=== PATIENT | male | born 1955 | race Caucasian/White ===

== ENCOUNTER → 2024-03-03 | Outpatient (BNVA) | payer MEDICARE, BC, SELFPAY | END | disposition home or self-care (01) | PROVIDERS: PCP Family Medicine; Referring Provider Family Medicine; Visit Provider Urology | DX: N42.32 Atypical small acinar proliferation of prostate (principal); N40.1 Benign prostatic hyperplasia with lower urinary tract symptoms; N13.8 Other obstructive and reflux uropathy; E78.00 Pure hypercholesterolemia, unspecified; E11.9 Type 2 diabetes mellitus without complications | CPT/HCPCS: 55700; 76872; 76942; 81003; 96372; A4649; J3260; J3490; A9270 ==

== ENCOUNTER → 2024-03-17 | Outpatient (BNVA) | payer MEDICARE, BC, SELFPAY | END | disposition home or self-care (01) | PROVIDERS: PCP Family Medicine; Referring Provider Family Medicine; Visit Provider Urology | DX: N40.0 Benign prostatic hyperplasia without lower urinary tract symptoms (principal); Z98.890 Other specified postprocedural states; R73.03 Prediabetes; E66.9 Obesity, unspecified; Z68.25 Body mass index [BMI] 25.0-25.9, adult | CPT/HCPCS: 81003; 99212; G0463 ==

== ENCOUNTER → 2024-07-15 | Outpatient (CLI) | payer MEDICARE, BC, SELFPAY ==
[2024-07-15 09:11] LABS: Collection Type, Urine Clean Catch
[2024-07-15 09:28] LABS: Basophils # (Auto) 0.1 Thou/mm3 (0.0-0.2); Basophils % (Auto) 2 % (0-2.5); Eosinophils # (Auto) 0.2 Thou/mm3 (0.0-0.5); Eosinophils % (Auto) 4 % (0-10); Hemoglobin 16.1 g/dL (13.5-16.0); Immature Granulocytes % (Auto) 0 % (0-0); Immature Granulocytes Auto 0.01 Thou/mm3 (0.00-0.00); Lymphocytes # (Auto) 1.2 Thou/mm3 (1.0-4.8); Lymphocytes % (Auto) 29 % (10-50); Mean Corpuscular HGB Conc 35.8 g/dl (31.0-37.0); Mean Corpuscular Hemoglobin 33.8 pg (25.0-35.0); Mean Corpuscular Volume 95 fL (80-100); Monocytes # (Auto) 0.3 Thou/mm3 (0.0-0.8); Monocytes % (Auto) 8 % (0-12); Neutrophils # (Auto) 2.3 Thou/mm3 (1.8-7.7); Neutrophils % (Auto) 57 % (37-80); Nucleated Red Blood Cell % 0 /100 WBC (0); Platelet Count 210 Thou/mm3 (140-440); RDW Standard Deviation 43.6 fL (35.1-43.9); Red Blood Count 4.76 Miln/mm3 (4.50-5.90)
[2024-07-15 09:46] LABS: Glucose Estimated Average 151 mg/dL (80-131); Hemoglobin A1C 6.9 % Hgb (4.8-6.0)
[2024-07-15 09:53] LABS: Creatinine MALB Rnd Ur 114 mg/dL (30-125); Microalbumin Creat Ratio 4 mg/gCrea (<30); Microalbumin, Random Urine 5 mg/L (0-300)
[2024-07-15 10:00] LABS: Bilirubin,Urine Negative (Negative); Blood,Urine Negative (Negative); Clarity,Urine Clear (Clear/Hazy); Color,Urine Yellow (Lt Yel-Yel); Culture Indicated,Urine Not Indicated; Glucose, Urine Negative (Negative); Ketones,Urine Negative (Negative); Leukocyte Esterase,Urine Negative (Negative); Nitrite,Urine Negative (Negative); Protein,Urine Negative (Neg - Trace); RBC,Urine 1 /hpf (0-3); Specific Gravity,Urine 1.018 (1.001-1.035); Squamous Epithelial Cell,Urine < 1 /hpf (0-5); Urobilinogen,Urine Negative mg/dL (0.0-1.0); WBC,Urine 1 /hpf (0-5)
[2024-07-15 10:11] LABS: Alanine Aminotransferase 18 U/L (10-49); Albumin, Serum 4.4 gm/dL (3.4-4.8); Albumin/Globulin Ratio 1.7 (1.2-2.2); Alkaline Phosphatase 85 U/L (46-116); Anion Gap 7 (7-16); Aspartate Amino Transferase 29 U/L (0-34); BUN/Creatinine Ratio 16 Ratio (12-20); Bilirubin,Total 0.8 mg/dL (0.3-1.2); Blood Urea Nitrogen 14 mg/dL (9-23); Calcium 9.6 mg/dL (8.3-10.6); Calcium (Corrected) 9.6 mg/dL (8.5-10.1); Carbon Dioxide 25.7 mMol/L (20.0-31.0); Chloride 106 mMol/L (98-107); Cholesterol 223 mg/dL (132-200); Creatinine (Component) 0.9 mg/dL (0.6-1.3); Globulin 2.6 gm/dL (2.3-3.5); Glucose 144 mg/dL (74-106); HDL Cholesterol 45 mg/dL (40-60); LDL Cholesterol,Calculated 147 mg/dL (0-130); Osmolality,Calculated 281 (275-295); Potassium 4.6 mMol/L (3.4-5.1); Sodium 139 mMol/L (136-145); Thyroid Stimulating Hormone 2.17 uIU/mL (0.55-4.78); Triglycerides 153 mg/dL (30-150); eGFR > 60 See Note
[2024-07-15 10:32] LABS: Prostate Specific Antigen 4.47 ng/mL (0-4.00)
== END | disposition home or self-care (01) ==
PROVIDERS: PCP Family Medicine; Referring Provider Registered Nurse; Visit Provider Registered Nurse
DX: Z00.00 Encounter for general adult medical examination without abnormal findings (principal); E11.65 Type 2 diabetes mellitus with hyperglycemia; E78.2 Mixed hyperlipidemia; N40.1 Benign prostatic hyperplasia with lower urinary tract symptoms; R97.20 Elevated prostate specific antigen [PSA]
CPT/HCPCS: 36415; 80053; 80061; 81001; 82043; 82306; 82570; 83036; 84153; 84443; 85025

== ENCOUNTER → 2024-07-28 | Outpatient (CLI) | payer MEDICARE, BC, SELFPAY ==
--- NOTE | 2024-07-28 10:51 | XR_ITS ---
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 No opaque foreign body Plantar posterior bony calcaneal spurs IMPRESSION: No fracture No opaque foreign body
== END | disposition home or self-care (01) ==
PROVIDERS: PCP Registered Nurse; Referring Provider Registered Nurse; Visit Provider Registered Nurse
DX: M79.671 Pain in right foot (principal)
CPT/HCPCS: 73630

== ENCOUNTER 2024-09-01 19:27 | Inpatient (IN) | payer MEDICARE, BC, SELFPAY ==
[2024-09-01] VITALS (53 sets, daily range): BP systolic 119–218; BP diastolic 75–127; PULSE 63–106; RESP 14–96; TEMP 36.8; O2SAT 94–98; BMI 26.7
--- NOTE | 2024-09-01 19:31 | EKG_ITS ---
[facility] Test Date: 2024-09-01 Pat Name: KALIN JOHNSTON Department: Room: - Gender: Male [employer]: : 1955 Requested By: Jc Cardona Order Number: [id number] Reading MD: Jc Cardona Measurements Intervals [place] Rate: 77 P: 30 [place]: 175 QRS: 54 QRSD: 115 T: 33 QT: 372 QTc: 421 Interpretive Statements SINUS RHYTHM MODERATE INTRAVENTRICULAR CONDUCTION DELAY [110+ ms QRS DURATION] Compared to ECG 11/16/2021 17:02:34 Intraventricular conduction delay now present Sinus bradycardia no longer present T-wave abnormality no longer present /store/S0/[id number]/[id number].pdf
--- NOTE | 2024-09-01 19:31 | XR_ITS ---
Examination: CTA carotids with intravenous contrast CTA brain, head with intravenous contrast. 2-D sagittal, coronal reconstructions. 3-D reconstructions. Exam date and time: September 01, 2024 1946 hrs. Indications: Stroke alert, slurred speech, numbness onset focal neurologic deficit today CTDI: vol (mGy) 39.9 DLP: (mGycm) 504 Technique: Multiple CTA axial brain, head carotid images post intravenous contrast injection 100 cc, Isovue-370. 2-D sagittal, coronal reconstructions. 3-D reconstructions, 3-D post processing including vascular maximum intensity projection images. Low dose protocols were performed. One or more of the following dose reduction techniques were used; automated exposure control, adjustment of the mA and/or KV according to patient size, use of iterative reconstruction technique. Findings: No significant common carotid carotid bifurcation or internal carotid artery stenoses Dominant left vertebral artery, no significant vertebral artery stenoses in the neck Intracranial vertebral arteries basilar artery fill Short segment lack of filling proximal left posterior cerebral artery which may relate to collateral flow No cerebral occlusions or thrombus involving M1 segments middle cerebral arteries middle cerebral trifurcation artery branches or anterior cerebral arteries Impression: No significant neck arterial stenoses Middle cerebral anterior cerebral arteries demonstrate no large vessel occlusions Lack of filling short segment proximal P1 segment left posterior cerebral artery which may relate to collateral flow, clinical correlation advised Recommend brain MRI MRA stroke protocol, follow-up
--- NOTE | 2024-09-01 19:31 | XR_ITS ---
Examination: CT brain head without contrast. 2-D sagittal coronal reconstructions Date and time of exam:September 01, 2024, 1934 hrs. Indications: Stroke alert, onset focal neurologic deficit today service speech numbness involving the tongue CTDI: vol (mGy):51.2 DLP: (mGycm): 1079 Technique: Multiple CT axial sections of the brain have been obtained, 5 mm slice thickness. Contrast has not been administered. 2-D sagittal, coronal reconstructions have been obtained Low dose protocols were performed. One or more of the following dose reduction techniques were used; automated exposure control, adjustment of the mA and/or KV according to patient size, use of iterative reconstruction technique. Findings: No significant ventricular enlargement. Intra-axial or extra-axial hemorrhage density is not seen. No mass effect or midline shift Basal cisterns are not remarkable. Fourth ventricle is midline. Cranial vault intact. Impression: Negative for acute hemorrhage, mass effect or midline shift
--- NOTE | 2024-09-01 19:33 | PD.EDADULT ---
ED General RME/HPI General Chief complaint: Neuro Symptoms/Deficit Stated complaint: CAN'T TALK Time Seen by Provider: 09/01/24 19:31 Arrival date/time: 09/01/24 19:27 CC: Garbled speech with significant difficulty of word pronunciation. Patient nods that he knows what he wants to say but he is unable to have his mouth perform the words. HPI abrupt onset at 1900. No prior history of similar events. Patient does not smoke drink. Patient admits he may have hypertension but does not take any medicines today has not been mentioned by his primary care doctor. Patient denies chest pain shortness of breath or difficulty breathing he is awake alert oriented Related Data Home Medications ?Medication ?Instructions ?Recorded ?Confirmed No Known Home Medications 02/06/24 03/17/24 Allergies Allergy/AdvReac Type Severity Reaction Status Date / Time No Known Allergies Allergy Verified 09/01/24 19:33 Review of Systems Review of Systems Narrative Review of Systems: GEN: No fever, no chills, no weight loss EYES: No discharge, no visual changes, no pain HEENT: No ear pain, no congestion, no sore throat PULM: No shortness of breath, no cough, no congestion CV: No chest pain, no dyspnea on exertion, no palpitations GI: No nausea, no vomiting, no diarrhea, no pain, no constipation : No frequency, no urgency, no dysuria MUSC/SKEL: No joint pain, no back pain SKIN: No rash PSYCH: No hallucinations, no depression HEME/LYMPH: No easy bleeding or bruising tendencies NEURO: No weakness, no headache, + garbled speech Past Medical History Past Medical History NEUROLOGIC: Negative Neurological Disorders or Seizures CARDIAC: Positive Cardiac Disorders and Hypercholesterolemia (No meds); Negative Congestive Heart Failure RESPIRATORY: Negative Chronic Obstructive Pulmonary Disease (COPD) GASTROINTESTINAL: Positive Gastrointestinal Disorders; Negative Hepatitis GENITOURINARY: Negative Genitourinary Disorders or Renal Disease REPRODUCTIVE: Negative Fibroids MUSCULOSKELETAL: Positive Musculoskeletal Disorders and Fractures (right wrist repair) ENDOCRINE: Positive Endocrine Disorders and Diabetes Mellitus Type 2 (po med); Negative Diabetes Mellitus Type 1 HEMATOLOGIC: Negative Blood Disorders, Anemia, Leukemia, Hemophilia, Thalassemia, Sickle Cell Disease or Clotting Problems OTHER HISTORY: Negative Hospitalization, Autoimmune Disease, Down Syndrome, Developmental Delay, Shingles, Falls, Blood Transfusions, Blood Transfusion Reaction, Anesthesia Reactions, Organ Transplant, Chemotherapy, Radiation Therapy, Hyperbaric Therapy, MRSA, VRSA, Vancomycin-Resistant Enterococci, Human Immunodeficiency Virus (HIV), Chicken Pox, Measles, Mumps, Rubella (Congolese Measles), Pertussis, Clostridium Difficile or Cancer Family History FAMILY HISTORY: Negative Family Psychiatric Problems, Family Respiratory Disorders, Family Cardiac Disorders, Family Gastrointestinal Problems, Family Cancer, Family Surgery or Family Anesthesia Reaction Surgical History SURGICAL: Negative Organ Transplant Social History SMOKING STATUS: Never smoker ED Exam Narrative Physical exam: [General: Not in any acute distress Head normocephalic HEENT: Eyes pupils are PERRLA EOMs intact nose no rhinorrhea mouth pink moist membranes uvula is midline swallow symmetrical phonation is normal. All the subsystems HEENT are within acceptable limits Neck is supple nontender no JVD Chest equal chest rise nontender to palpation Respiratory: Clear to auscultation no wheezes crackles or rubs CV: Rate rhythm is regular no murmurs rubs or clicks Abdomen is flat, soft nontender no masses positive bowel sounds all 4 quadrants Back: No CVA tenderness no spinous process tenderness from cervical spine thoracic and lumbar spine Skin: Intact no petechiae rash induration ulceration or crepitus Extremities: Moving all extremity against resistance cap refill less than 2 seconds neurosensory intact Neuro: Awake alert oriented x3 Glascow coma 15 no focal deficits, negative proprioception negative pronator drift. Following all commands without complication. Cranial nerves II through XII are grossly intact. The patient still has persistent difficulty in pronunciation words. Course Course Course Narrative: At 2045, patient's infusion of [facility] is complete, the patient has mild improvement in his speech where he is able to sit pronounce his name clearly. 1-2 words come out clearly however more complex phrases continue to be garbled. At 2129, the patient's case is presented to laboratory results imaging and presentation discussed with , who agrees accept the patient for ICU admission. Patient is in agreement with this plan. Quality Measures none Orders Category Date Time Status Bedside Blood Glucose NOW Care 09/01/24 19:31 Active Field Party Manager NOW Care 09/01/24 19:31 Active Continuous Pulse Oximetry NOW Care 09/01/24 19:31 Completed EKG (ED ONLY) *Do not use* NOW Care 09/01/24 19:31 Active In and Out Catheter NEEDED Care 09/01/24 19:31 Active Insert IV NOW Care 09/01/24 19:31 Active NIH Stroke Scale Q4HX8,QSHIFT Care 09/01/24 20:27 Active NIH Stroke Scale now Care 09/01/24 19:31 Completed NPO NOW Care 09/01/24 19:31 Active Neuro Check Q15M Care 09/01/24 20:27 Active Nurse Swallow Screen x1 Care 09/01/24 19:31 Active Vital Signs Q15M Care 09/01/24 20:27 Active Consult to Neurology / Tele-Neurology Routine Cons 09/01/24 19:[address] angio stroke protocol Stat Exams 09/01/24 19:[address] stroke protocol Stat Exams 09/01/24 19:31 Completed EKG (ED Only) Stat Exams 09/01/24 19:31 Ordered CBC Stat Lab 09/01/24 19:45 Completed Comprehensive Metabolic Panel Stat Lab 09/01/24 20:05 Completed Drug Screen,Urine Stat Lab 09/01/24 19:31 Ordered Magnesium Stat Lab 09/01/24 20:05 Completed Partial Thromboplastin Time Stat Lab 09/01/24 20:05 Completed Prothrombin Time with INR Stat Lab 09/01/24 20:05 Completed Troponin I Stat Lab 09/01/24 20:05 Completed Urinalysis Stat Lab 09/01/24 19:31 Ordered Urine Culture Stat Lab 09/01/24 19:31 Ordered Labetalol IV [Trandate IV] Med 09/01/24 20:12 Active 10 mg IVP PRNMRX1 PRN Labetalol IV [Trandate IV] Med 09/01/24 20:12 Active 10 mg IVP PRNMRX1 PRN Nicardipine/Ns 20Mg Ivpb [Cardene Ivpb] Med 09/01/24 20:00 Discontinued 20 mg in 200 ml IV 5 mg/hr Nicardipine/Ns 20Mg Ivpb [Cardene Ivpb] Med 09/01/24 20:12 Active 20 mg in 200 ml IV 5 mg/hr Ondansetron Inj [Zofran Inj] Med 09/01/24 19:31 Active 4 mg IV Q4HR PRN Tenecteplase Inj [TNKase Inj] Med 09/01/24 20:12 Discontinued 21 mg IV X1 ONE Oxygen Delivery NOW RT 09/01/24 19:31 Active Vital Signs Vital signs: Vital Signs Pulse Rate 65 09/01/24 20:06 Respiratory Rate 17 09/01/24 20:06 Pulse Oximetry (%) 98 09/01/24 20:06 Discharge Plan Plan Patient Disposition: Admit Acute Care w/in Hospital Patient condition on transfer: Stable Prescriptions/Referrals Prescriptions/Med Rec: No Action No Known Home Medications Referrals: No Primary/Family,Physician [Primary Care Provider] - In 1 week Problem List Clinical Impression: Cerebrovascular accident Patient/Caregiver Discharge Instructions Print Language: [place] Stand Alone Forms: [place] Award Info., Patient Portal Info Letter PA/TALENT RECRUITER Supervising Physician PA/TALENT RECRUITER Supervising Physician: Jc Booth ENP MDM Patient Acuity High Acuity (complete MDM) Clinical Information Provided by: patient Medical Records reviewed [facility] Chronic Illness/Social Conditions which may negatively complicate care or outcome(s)-explain: None or not applicable Labs Lab(s) Interpretation(s): CBC shows no leukocytosis no anemia thrombocytopenia INR is within acceptable limits CMP shows no acute electrolyte imbalances glucose at 173 no transaminitis or T. bili elevation Magnesium at 2.[address] head is interpreted by radiology as negative for any acute finding requires emergent or immediate intervention. Medication Administration(s) Medication Administration History Nicardipine/Sodium Chloride (Cardene Ivpb) 20 mg in 200 mls @ 50 mls/hr IV .Q4H PRN; Protocol PRN Reason: Per Nicardipine Stroke Protocol Stop: 10/01/24 20:11 Last Titration: 09/01/24 21:05 Dose: 3 mg/hr, 30 mls/hr Documented By: Titration: 09/01/24 21:00 Dose: 3 mg/hr, 30 mls/hr Documented By: Titration: 09/01/24 20:55 Dose: 3 mg/hr, 30 mls/hr Documented By: Titration: 09/01/24 20:50 Dose: 3 mg/hr, 30 mls/hr Documented By: Titration: 09/01/24 20:45 Dose: 3 mg/hr, 30 mls/hr Documented By: Titration: 09/01/24 20:40 Dose: 3 mg/hr, 30 mls/hr Documented By: Titration: 09/01/24 20:35 Dose: 3 mg/hr, 30 mls/hr Documented By: Titration: 09/01/24 20:30 Dose: 3 mg/hr, 30 mls/hr Documented By: Titration: 09/01/24 20:25 Dose: 3 mg/hr, 30 mls/hr Documented By: Titration: 09/01/24 20:20 Dose: 3 mg/hr, 30 mls/hr Documented By: Titration: 09/01/24 20:15 Dose: 7.5 mg/hr, 75 mls/hr Documented By: Admin: 09/01/24 20:10 Dose: 5 mg/hr, 50 mls/hr Documented By: EF Labetalol HCl (Labetalol Inj 5 Mg/Ml Vial 20 Ml) 10 mg IVP PRNMRX1 PRN PRN Reason: SBP > 185 mmHg and/or DBP > 110 Labetalol HCl (Labetalol Inj 5 Mg/Ml Vial 20 Ml) 10 mg IVP PRNMRX1 PRN PRN Reason: SBP > 180 mmHg or DBP > 105 Ondansetron HCl (Ondansetron Inj 2 Mg/Ml Inj 2 Ml) 4 mg IV Q4HR PRN PRN Reason: NAUSEA OR VOMITING Stop: 10/01/24 19:30 Discontinued Medications Nicardipine/Sodium Chloride (Cardene Ivpb) 20 mg in 200 mls @ 50 mls/hr IV .Q4H PRN; Protocol PRN Reason: PER PROTOCOL Stop: 10/01/24 19:59 Last Titration: 09/01/24 20:10 Dose: 0 mg/hr, 0 mls/hr Documented By: Admin: 09/01/24 20:07 Dose: 5 mg/hr, 50 mls/hr Documented By: EF Tenecteplase (Tenecteplase Inj 50 Mg Vial) 21 mg IV X1 ONE Stop: 09/01/24 20:13 Last Admin: 09/01/24 20:31 Dose: 21 mg Documented By: EF Co-signed By: RC
[2024-09-01 19:53] LABS: Basophils # (Auto) 0.1 Thou/mm3 (0.0-0.2); Basophils % (Auto) 2 % (0-2.5); Eosinophils # (Auto) 0.3 Thou/mm3 (0.0-0.5); Eosinophils % (Auto) 5 % (0-10); Hematocrit 44.3 % (41.0-53.0); Immature Granulocytes % (Auto) 0 % (0-0); Immature Granulocytes Auto 0.01 Thou/mm3 (0.00-0.00); Lymphocytes % (Auto) 37 % (10-50); Mean Corpuscular HGB Conc 36.1 g/dl (31.0-37.0); Mean Corpuscular Hemoglobin 33.8 pg (25.0-35.0); Mean Corpuscular Volume 94 fL (80-100); Monocytes # (Auto) 0.5 Thou/mm3 (0.0-0.8); Monocytes % (Auto) 8 % (0-12); Neutrophils # (Auto) 2.6 Thou/mm3 (1.8-7.7); Neutrophils % (Auto) 48 % (37-80); Nucleated Red Blood Cell % 0 /100 WBC (0); Platelet Count 202 Thou/mm3 (140-440); RDW Standard Deviation 44.1 fL (35.1-43.9); Red Blood Count 4.73 Miln/mm3 (4.50-5.90); White Blood Count 5.4 Thou/mm3 (3.8-10.6)
[2024-09-01] MEDS: NICARDIPINE/NS 20MG IVPB 20 MG/200 ML BAG 50 MG IV ×2 (20:07→20:10)
[2024-09-01 20:31] LABS: Partial Thromboplastin Time 27.1 Seconds (22.0-36.0); Prothrombin Time 10.9 Seconds (9.0-12.2)
[2024-09-01] MEDS: TENECTEPLASE INJ 50 MG VIAL 21 MG IV (20:31)
[2024-09-01 20:44] LABS: Alanine Aminotransferase 22 U/L (10-49); Albumin, Serum 4.7 gm/dL (3.4-4.8); Albumin/Globulin Ratio 1.6 (1.2-2.2); Alkaline Phosphatase 94 U/L (46-116); Anion Gap 6 (7-16); Aspartate Amino Transferase 26 U/L (0-34); BUN/Creatinine Ratio 11 Ratio (12-20); Bilirubin,Total 0.7 mg/dL (0.3-1.2); Blood Urea Nitrogen 12 mg/dL (9-23); Calcium 9.3 mg/dL (8.3-10.6); Calcium (Corrected) 9.3 mg/dL (8.5-10.1); Carbon Dioxide 28.8 mMol/L (20.0-31.0); Chloride 105 mMol/L (98-107); Creatinine (Component) 1.1 mg/dL (0.6-1.3); Estimated Creatinine Clearance 62.5 mL/min (>60); Globulin 2.9 gm/dL (2.3-3.5); Glucose 173 mg/dL (74-106); Magnesium 2.2 mg/dL (1.6-2.6); Osmolality,Calculated 283 (275-295); Potassium 3.8 mMol/L (3.4-5.1); Sodium 140 mMol/L (136-145); Total Protein 7.6 gm/dL (5.7-8.2); Troponin I < 0.020 ng/mL (0.0-0.045); eGFR > 60 See Note
--- NOTE | 2024-09-01 21:16 | ESCONSULT_ITS ---
Tele Neuro Consultation Consultation Date 09/01/24 Most Recent Vital Signs Last Vital Signs Pulse 77 09/01/24 21:11 Resp 17 09/01/24 21:11 BP 169/76 H 09/01/24 21:11 Pulse Ox 96 09/01/24 21:11 O2 Del Method Room Air 09/01/24 21:03 Laboratory-Coagulation Panel PT 10.9 Seconds (9.0-12.2) 09/01/24 20:05 INR 1.0 (0.9-1.3) 09/01/24 20:05 APTT 27.1 Seconds (22.0-36.0) 09/01/24 20:05 Consultation Narrative [facility] Patient Name:???Martín Cortes Date of :???1955 Identification Number:??? Date of Service:???09/01/2024 19:30:57 Diagnosis:?I63.89 - Cerebrovascular accident (CVA) due to other mechanism ([facility]) Impression: ?This is a 69 year old right handed man with history of diabetes here with difficulty speaking stroke alert called for the same. Given that deficits are disabling (he was barely able to speak at all at the time thrombolytics were given) and, given lack of clear contraindications he was given IV thrombolytics. Time was spent controlling the blood pressure prior to giving IV thrombolytics. Radiology noted lack of filling within the left P1 segment- but- there was no clear cut off the vessel was filling will proximal to, and distal to the ? area where filling was not noted. Radiology did not believe that this was an a cute occlusion. Our recommendations are outlined below. Recommendations: IV Tenecteplase recommended. I confirmed the following. (Patient name, , MRN, Blood Pressure, dose of Thrombolytic and waste, weight completed by stretcher/scale not stated weight, have ED staff inform ED MD of thrombolytic decision) Thrombolytic bolus given Without Complication. IV Tenecteplase Total Dose ? 20.6 mg (Dose Rounding Per Facility Protocol) Routine post Thrombolytic monitoring including neuro checks and blood pressure control during/after treatment Monitor blood pressure Check blood pressure and neuro assessment every 15 min for 2 h, then every 30 min for 6 h, and finally every hour for 16 h. Manage Blood Pressure per post Thrombolytic protocol. ? Follow designated hospital protocol for admission and post thrombolytic care ? CT brain 24 hours post Thrombolytic ? NPO until swallowing screen performed and passed ? No antiplatelet agents or anticoagulants (including heparin for DVT prophylaxis) in first 24 hours ? No Means catheter, nasogastric tube, arterial catheter or central venous catheter for 24 hr, unless absolutely necessary ? Telemetry ? Bedside swallow evaluation ? HOB less than 30 degrees ? Euglycemia ? Avoid hyperthermia, PRN acetaminophen ? DVT prophylaxis ? Inpatient Neurology Consultation ? Stroke evaluation as per inpatient neurology recommendations Discussed with ED physician Advanced Imaging: CTA Head and Neck Completed. LVO:No Patient in not a candidate for CHELSEA Metrics: Last Known Well: 09/01/2024 19:00:00 Dispatch Time: 09/01/2024 19:30:57 Arrival Time: 09/01/2024 19:27:00 Initial Response Time: 09/01/2024 19:36:28Symptoms: difficulty speaking. Initial patient interaction: 09/01/2024 19:40:00 NIHSS Assessment Completed: 09/01/2024 19:40:00Patient is a candidate for Thrombolytic. Thrombolytic Medical Decision: 09/01/2024 20:20:00 Needle Time: 09/01/2024 20:33:00Weight Noted by Staff: 82.[address] head showed no acute hemorrhage or acute core infarct. Primary Provider Notified of Diagnostic Impression and Management Plan on: 09/01/2024 21:09:54 Extended thrombolytic management related to: ?? Delays related to blood pressure management ?? Delays related to blood pressure management Thrombolytic Contraindications: Last Known Well > 4.5 hours:?No CT Head showing hemorrhage:?No Ischemic stroke within 3 months:?No Severe head trauma within 3 months:?No Intracranial/intraspinal surgery within 3 months:?No History of intracranial hemorrhage:?No Symptoms and signs consistent with an SAH:?No GI malignancy or GI bleed within 21 days:?No Coagulopathy: Platelets <100 000 /mm3, INR >1.7, aPTT>40 s, or PT >15 s:?No Treatment dose of LMWH within the previous 24 hrs:?No Use of NOACs in past 48 hours:?No Glycoprotein IIb/IIIa receptor inhibitors use:?No Symptoms consistent with infective endocarditis:?No Suspected aortic arch dissection:?No Intra-axial intracranial neoplasm:?No Thrombolytic Decision and Management Plan: Management with thrombolytic treatment was explained to the Patient as was risks and benefits and alternatives to the treatment. Patient agrees with the decision to proceed with thrombolytic treatment. . All questions were answered and the Patient expressed understanding of the t reatment plan. History of Present Illness:Patient is a 69 year old Male. Patient was brought by private transportation with symptoms of difficulty speaking. This is a 69 year old man with history of diabetes here with difficulty speaking stroke alert called for the same. Symptoms started at 7 pm the evening of presentation. He had both word finding difficulty and slurred speech. The patient was hypertensive initially- thrombolytics were discussed and he was agreeable to the treatment. However- blood pressure was 239/119. This dropped to 204/99 then 185/90. Cardene drip was started. Blood pressure dropped to 169/80, then increased to 174/83, 185/90 and finally 121/91. Past Medical History: ?Diabetes Mellitus ?There is no history of Atrial Fibrillation ?There is no history of Stroke Other PMH:? diabetes Medications: No Anticoagulant use? No Antiplatelet use Reviewed EMR for current medications Allergies:? Reviewed Social History: Drug Use: No Family History: There is no family history of premature cerebrovascular disease pertinent to this consultation ROS : 14 Points Review of Systems was performed and was negative except mentioned in HPI. Past Surgical History: There Is No Surgical History Contributory To Today?s Visit Examination: BP(121/91),?Pulse(81), 1A: Level of Consciousness - Alert; keenly responsive?+ 0 1B: Ask Month and Age - Both Questions Right?+ 0 1C: Blink Eyes & Squeeze Hands - Performs Both Tasks?+ 0 2: Test Horizontal Extraocular Movements - Normal?+ 0 3: Test Visual Tran - No Visual Loss?+ 0 4: Test Facial Palsy (Use Grimace if Obtunded) - Normal symmetry?+ 0 5A: Test Left Arm Motor Drift - No Drift for 10 Seconds?+ 0 5B: Test Right Arm Motor Drift - No Drift for 10 Seconds?+ 0 6A: Test Left Leg Motor Drift - No Drift for 5 Seconds?+ 0 6B: Test Right Leg Motor Drift - No Drift for 5 Seconds?+ 0 7: Test Limb Ataxia (FNF/Heel-Riojas) - No Ataxia?+ 0 8: Test Sensation - Normal; No sensory loss?+ 0 9: Test Language/Aphasia - Mild-Moderate Aphasia: Some Obvious Changes, Without Significant Limitation?+ 1 10: Test Dysarthria - Mild-Moderate Dysarthria: Slurring but can be understood?+ 1 11: Test Extinction/Inattention - No abnormality?+ 0 NIHSS Score:?2 NIHSS Free Text :?Aphasia actually got worse during the ED course - while we were working to control his blood pressure, Pre-Morbid Modified Ani Scale:0 Points = No symptoms at all Spoke with :?Dr. Booth This consult was conducted in real time using interactive audio and video technology. Patient was informed of the technology being used for this visit and agreed to proceed. Patient located in hospital and provider located at home/office setting. Patient is being evaluated for possible acute neurologic impairment and high probability of imminent or life-threatening deterioration. I spent total of 93 minutes providing care to this patient, including time for face to face visit via telemedicine, review of medical records, imaging studies and discussion of findings with providers, the patient and/or family. Dr Kasie Garcia [facility] For Inpatient follow-up with [facility] physician please call [facility] at . As we are not an outpatient service for any post hospital discharge needs please contact the hospital for assistance. If you have any questions for the [facility] physicians or need to reconsult for clinical or diagnostic changes please contact us via [facility] at .
--- NOTE | 2024-09-01 22:06 | ESHP_ITS ---
Documentation for date of: 09/01/24 HPI History of Present Illness Chief complaint: expressive aphasia History of present illness: Patient is a 69 year old male with PMH of DM2 (not on medication, told well- controlled), HTN who presents to the ER for difficulty speaking. He had garbled speech/unable to talk. Symptoms started abruptly at 1900 so came to the ER. Denies headache, vision changes, weakness. No prior history of similar episodes. He endorses some ongoing stress at home and also bought a new car today. He is active and ambulatory at baseline In the ER, stroke alert was called. BP was as high as SBP 230s. CT head was negative, and CTA neck showed no LVO. He was seen by tele-neuro and given tenecteplase and started on a nicardipine drip. Upon my evaluation, patient is able to speak in 3-4 wordd sentences slowly. He reports is able to think of what he wants to say but has difficuly saying it. PMH: HTN, DM2 PSH: left shoulder surgery Meds: none SH: denies smoking, illicit drug use, alcohol use. Retired. Patient admitted to the ICU for stroke and nicardipine drip. Review of Systems Review of Systems Systems Reviewed: All systems reviewed, normal except as documented Exam Vital Signs Pulse Resp BP Pulse Ox O2 Del Method 77 17 169/76 H 96 Room Air 09/01/24 21:11 09/01/24 21:11 09/01/24 21:11 09/01/24 21:11 09/01/24 21:03 Narrative Exam Constitutional: NAD. Awake, pleasant, making jokes. Well-appearing. HEENT: NCAT. Vision grossly intact. Mucous membranes moist. Respiratory: CTAB bilaterally. Cardiac: RRR. Abdomen: BS+. Soft, non-distended, non-tender. No guarding, no rebound. MSK: No B/L LE edema. Skin: Warm, dry, intact. No obvious lesions. Neuro: Motor and sensation grossly intact. Expressive aphasia, improving. B/L UE and LE strengh 09/14 Psychiatric: Appropriate mood and affect. Results: Labs 09/01/24 19:45 09/01/24 20:05 Labs: Short CBC 09/01/24 Range/Units 19:45 WBC 5.4 (3.8-10.6) Thou/mm3 Hgb 16.0 (13.5-16.0) g/dL Hct 44.3 (41.0-53.0) % Plt Count 202 (140-440) Thou/mm3 BMP 09/01/24 20:05 Sodium 140 Potassium 3.8 Chloride 105 Carbon Dioxide 28.8 BUN 12 Creatinine 1.1 Glucose 173 H Calcium 9.3 Cardiac Enzymes 09/01/24 Range/Units 20:05 Troponin I < 0.020 (0.0-0.045) ng/mL Liver Function 09/01/24 Range/Units 20:05 Total Bilirubin 0.7 (0.3-1.2) mg/dL AST 26 (0-34) U/L ALT 22 (10-49) U/L Alkaline Phosphatase 94 (46-116) U/L Albumin 4.7 (3.4-4.8) gm/dL Quality Measures Quality Measures none Advance care planning discussed with:: patient Medications Home Medications and Allergies Home Medications ?Medication ?Instructions ?Recorded ?Confirmed ?Type No Known Home Medications 02/06/24 110 10/03 History Allergies Allergy/AdvReac Type Severity Reaction Status Date / Time No Known Allergies Allergy Verified 09/01/24 19:33 Visit Medications Nicardipine/Sodium Chloride (Cardene Ivpb) 20 mg in 200 mls @ 50 mls/hr IV .Q4H PRN; Protocol PRN Reason: Per Nicardipine Stroke Protocol Stop: 10/01/24 20:11 Last Titration: 09/01/24 21:05 Dose: 3 mg/hr, 30 mls/hr Labetalol HCl (Labetalol Inj 5 Mg/Ml Vial 20 Ml) 10 mg IVP PRNMRX1 PRN PRN Reason: SBP > 185 mmHg and/or DBP > 110 Labetalol HCl (Labetalol Inj 5 Mg/Ml Vial 20 Ml) 10 mg IVP PRNMRX1 PRN PRN Reason: SBP > 180 mmHg or DBP > 105 Ondansetron HCl (Ondansetron Inj 2 Mg/Ml Inj 2 Ml) 4 mg IV Q4HR PRN PRN Reason: NAUSEA OR VOMITING Stop: 10/01/24 19:30 Discontinued Medications Nicardipine/Sodium Chloride (Cardene Ivpb) 20 mg in 200 mls @ 50 mls/hr IV .Q4H PRN; Protocol PRN Reason: PER PROTOCOL Stop: 10/01/24 19:59 Last Titration: 09/01/24 20:10 Dose: 0 mg/hr, 0 mls/hr Tenecteplase (Tenecteplase Inj 50 Mg Vial) 21 mg IV X1 ONE Stop: 09/01/24 20:13 Last Admin: 09/01/24 20:31 Dose: 21 mg Assessment & Plan Plan Patient is 69 year old male admitted to the ICU for stroke s/p tenecteplase 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 Expressive aphasia, improving. CT head negative. 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 Given tenecteplase in the ER - MRI - Neuro checks - Echo - Lipid, A1c, TSH panel ordered - PT and DERRICK ENGINEER - Bedside swallow screen - Neurology Dr. Joshi consulted - Avoid invasive procedures for 24 hours post-tenecteplase to reduce risk of bleeding CARDIOVASCULAR #Hypertensive Emergency - nicardipine drip for permissive HTN < 180/105 - labetolol prn RESPIRATORY No acute problems RENAL No acute problems GI No acute problems ENDO #History of DM2 Euglycemic - A1c pending HEME No acute problems ID No acute problems Health Maintenance Disposition: Admit to ICU for stroke s/p tenecteplase Diet and fluids: NPO pending swallow DVT prophylaxis: SCD GI prophylaxis: none Lines: PIV CODE STATUS: FULL I have reviewed and discussed the patient's care with my attending, Dr. Keke Hicks MD PGY-3 Attending Provider Attestation/Addendum I attest that I was physically present for the evaluation, physical examination, lab and imaging review of the patient with the residents. I discussed the case with the residents and agree with the findings and plans of care as documented above. Patient is a 69 years old male with past medical history of diabetes, hypertension who presented to the ED with complaint of inability to speak. His symptoms started suddenly at around 1900. He denies any weakness of the limbs, headache, vision changes, change in hearing, numbness or tingling and change in gait. He denies any prior episode. As per the son, she is speech has improved slightly compared to presentation. At bedside, patient is alert and oriented but only able to answer few words while trying to answer questions, he seemed to be understanding the questions asked and aware of the situation. His strength and sensations were intact throughout. Stroke alert was called in the ED, CT head was done, which was negative for acute hemorrhage, mass effect or midline shift. Teleneurology was consulted, patient was started on tenecteplase. She was also found to have very high blood pressure with systolic in the 230s. Rest of the vitals were within normal limits. Patient was also started on nicardipine drip for aggressive blood pressure management. We will admit the patient to ICU for close monitoring post tenecteplase and nicardipine drip. We will obtain brain MRI, echocardiography, physical and speech therapy, tight temperature control and in-house neurology consult. Total time spent on the critical care of the patient: 35 minutes Bud Davies MD
[2024-09-01 22:23] LABS: Collection Type, Urine Clean Catch; Squamous Epithelial Cell,Urine 0 /hpf (0-5); WBC,Urine 0 /hpf (0-5)
[2024-09-01 22:27] LABS: Bilirubin,Urine Negative (Negative); Blood,Urine Negative (Negative); Clarity,Urine Clear (Clear/Hazy); Color,Urine Colorless (Lt Yel-Yel); Glucose, Urine Negative (Negative); Ketones,Urine Negative (Negative); Leukocyte Esterase,Urine Negative (Negative); Nitrite,Urine Negative (Negative); PH,Urine 7.5 (5.0-7.0); Protein,Urine Negative (Neg - Trace); RBC,Urine 1 /hpf (0-3); Urobilinogen,Urine Negative mg/dL (0.0-1.0)
[2024-09-01 22:37] LABS: Amphetamine/Methamp Scrn,U Negative (Negative); Barbiturate Screen,Urine Negative (Negative); Benzodiazepines Screen,Urine Negative (Negative); Benzoylecgonine Screen, Ur Negative (Negative); Fentanyl Screen,Urine Negative (Negative); Opiate Screen,Urine Negative (Negative); THC Screen,Urine Negative (Negative)
[2024-09-02] VITALS (158 sets, daily range): BP systolic 112–178; BP diastolic 67–105; PULSE 54–90; RESP 8–34; TEMP 36.2–37; O2SAT 92–100
--- NOTE | 2024-09-02 | XR_ITS ---
Examinations: MRI Brain without intravenous contrast. MRA brain without intravenous contrast. MRA carotids without intravenous contrast 3-D vascular reconstructions Date and time of exam: September 02, 2024 1549 hours INDICATIONS: Stroke alert September 01, 2024, onset focal neurologic deficit, slurred speech numbness involving the tongue beginning 1900 hours last night Technique: Multiple axial and sagittal images of the brain have been obtained MRA brain carotid images without contrast obtained, including 3-D postprocessing, vascular maximum intensity projection images Findings: Sellaturc[place] is not enlarged. The optic chiasm and infundibular stalk are not remarkable. Prepontine and interpeduncular cisterns are not enlarged. No localized enlargement of the medulla or fara. Fourth ventricle and cerebellar tonsils normal in position. Subacute hemorrhage is not seen. Fourth ventricle is midline. Mass in the cerebellopontine angle region is not evident. 7th and 8th nerve complexes exhibits symmetry. Globes are symmetrical with no retro-orbital mass. Increased white matter signal moderate Diffusion-weighted images demonstrate 37 x 20 mm focus restricted diffusion left parietal lobe Mass-effect upon the ventricular system is not identified. MRA carotid images no significant carotid stenoses. MRA brain images no large vessel occlusions Impression: Negative for acute hemorrhage mass effect or midline shift 37 x 20 mm acute infarct left parietal lobe No significant carotid stenoses No cerebral large vessel occlusions
[2024-09-02] MEDS: NICARDIPINE/NS 20MG IVPB 20 MG/200 ML BAG 30 MG IV (01:31)
--- NOTE | 2024-09-02 02:35 | PC.NURSE ---
noticed difference in patients slurred speech notified dr ortiz
--- NOTE | 2024-09-02 02:40 | PC.NURSE ---
dr ortiz at bedside doing neuro assessment
--- NOTE | 2024-09-02 02:51 | XR_ITS ---
Examination: CT brain head without contrast. 2-D sagittal coronal reconstructions Date and time of exam:September 02, 2024 0301 hrs. Indications: Stroke alert, onset focal neurologic deficit, worsening speech difficulties in the last 30 minutes CTDI: vol (mGy):51.1 DLP: (mGycm):1097 Technique: Multiple CT axial sections of the brain have been obtained, 5 mm slice thickness. Contrast has not been administered. 2-D sagittal, coronal reconstructions have been obtained Low dose protocols were performed. One or more of the following dose reduction techniques were used; automated exposure control, adjustment of the mA and/or KV according to patient size, use of iterative reconstruction technique. Findings: No significant ventricular enlargement. Minimal low density in the left middle cerebral artery distribution Intra-axial or extra-axial hemorrhage density is not seen. No mass effect or midline shift Basal cisterns are not remarkable. Fourth ventricle is midline. Cranial vault intact. Impression: Negative for acute hemorrhage, mass effect or midline shift Minimal low-density in the left middle cerebral artery distribution, recommend brain MRI MRA without contrast follow-up to exclude early acute infarct
--- NOTE | 2024-09-02 03:51 | PRELIM_ITS ---
CT scan of the head without intravenous contrast (axial sections with sagittal and coronal reformats) September 02, 2024 0301 hours Clinical history: worsening deficit Findings: There is an ill-defined hypodensity in the left frontal lobe (axial image 16/47).There is no evidence of intracranial hemorrhage, mass effect or midline shift. There are periventricular white matter hypodensities, compatible with chronic small vessel ischemia. There is mild volume loss. The calvarium is unremarkable. The mastoid air cells and the visualized paranasal sinuses are clear. Impression: Acute infarct in the left middle cerebral artery territory. No evidence of intracranial hemorrhage, mass effect or midline shift. Periventricular chronic small vessel ischemia and volume loss. Discussion Details: Results Discussed With : Dr. Davies at 03:25 AM 09/02/2024 Report Electronically Signed By: Nikita Puckett 09/02/2024 3:50:23 AM [EST]
--- NOTE | 2024-09-02 10:49 | PC.SS ---
Update: Plan is for patient to obtain MRI. Patient is NPO. Neurology to be consulted.
--- NOTE | 2024-09-02 12:09 | ESPR_ITS ---
Documentation for date of: 09/02/24 Subjective Subjective Interval history: Patient seen and examined at bedside. He is a 69-year-old male with a past medical history of reported hypertension and prediabetes, currently not on any medications who presented to the ED with expressive aphasia as well as numbness/tingling in the mouth and lips. Teleneuro was consulted, head CT was negative for bleed and as the patient was within the window, TNK was given at 20:30 after blood pressure was controlled with nicardipine drip. The patient was admitted to the ICU for monitoring status post TNK. Repeat head CT will be done at the 24-hour may after TNK was given and will follow-up with MRI. At bedside today, patient states that his speech is about the same, still has some expressive aphasia as well as numbness/tingling. Exam Vital Signs Temp Pulse Resp BP Pulse Ox O2 Del Method 98.3 F 62 20 142/80 H 98 Room Air 09/02/24 08:00 09/02/24 11:00 09/02/24 11:00 09/02/24 11:00 09/02/24 11:09/02/24 11:00 Narrative Exam GENERAL: AAOX3 NEURO: Strength preserved-5/5 in bilateral upper and lower extremities. Sensation intact, intention tremors, normal [id number] and heel to rooney, no nystagmus. Expressive aphasia. HEENT: Moist mucosa. Eyes open, symmetrical, & clear CARDIO: No chest pain on palpation. Heart RRR, no obvious murmurs PULM: No noted coughing/dyspnea. Lungs CTA B/L GI: Abdomen soft, nondistended, no pain on palpation. 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 SKIN/MSK/EXT: No wounds/rashes/edema/amputations, no pain on palpation. Pedal pulses present B/L Objective Labs 09/03/24 04:31 09/03/24 04:31 Labs: Laboratory Results - last 24 hr 09/01/24 09/01/24 09/01/24 19:45 20:05 22:12 WBC 5.4 RBC 4.73 Hgb 16.0 Hct 44.3 MCV 94 MCH 33.8 MCHC 36.1 RDW Std Deviation 44.1 H Plt Count 202 Neut % (Auto) 48 Lymph % (Auto) 37 [place] % (Auto) 8 Eos % (Auto) 5 Baso % (Auto) 2 Neut # (Auto) 2.6 Lymph # (Auto) 2.0 Porter # (Auto) 0.5 Eos # (Auto) 0.3 Baso # (Auto) 0.1 Immature Gran # (Auto) 0.01 H Absolute Nucleated RBC 0.00 Immature Gran % 0 Nucleated RBC % 0 PT 10.9 INR 1.0 APTT 27.1 Sodium 140 Potassium 3.8 Chloride 105 Carbon Dioxide 28.8 Anion Gap 6 L BUN 12 Creatinine 1.1 Estim Creat Clear Calc 62.5 eGFR > 60 BUN/Creatinine Ratio 11 L Glucose 173 H Calculated Osmolality 283 Calcium 9.3 Corrected Calcium 9.3 Magnesium 2.2 Total Bilirubin 0.7 AST 26 ALT 22 Alkaline Phosphatase 94 Troponin I < 0.020 Total Protein 7.6 Albumin 4.7 Globulin 2.9 Albumin/Globulin Ratio 1.6 Ur Collection Type Clean Catch Urine Color Colorless A Urine Clarity Clear Urine pH 7.5 H Ur Specific [place] 1.020 Urine Protein Negative Urine Glucose (UA) Negative Urine Ketones Negative Urine Blood Negative Urine Nitrite Negative Urine Bilirubin Negative Urine Urobilinogen (Auto) Negative Ur Leukocyte Esterase Negative Urine RBC 1 Urine WBC 0 Ur Squamous Epith Cells 0 Urine Bacteria None Urine Opiates Screen Negative Urine Fentanyl Screen Negative Ur Barbiturates Screen Negative U Amphetamin/Meth Scrn Negative U Benzodiazepines Scrn Negative U Cocaine Metab Screen Negative U Marijuana (THC) Screen Negative HCG (Qual) Cancelled Quality Measures Quality Measures none Advance care planning discussed with:: patient Assessment & Plan Assessment Current Active Medications: Generic Name Dose Route Start Last Admin Trade Name Reynaldo PRN Reason Stop Dose Admin Acetaminophen 650 mg 09/01/24 23:28 Acetaminophen 325 Mg Tablet PO 10/01/24 23:27 Q6HR PRN Fever>101,headache,mild pain Nicardipine/Sodium Chloride 20 mg in 200 mls @ 50 mls/hr 09/01/24 20:12 09/02/24 05:00 Cardene Ivpb IV 10/01/24 20:11 3 mg/hr .Q4H PRN 30 mls/hr Per Nicardipine Stroke Protocol Titration Protocol 5 MG/HR Labetalol HCl 10 mg 09/01/24 20:12 Labetalol Inj 5 Mg/Ml Vial 20 Ml IVP PRNMRX1 PRN SBP > 185 mmHg and/or DBP > 110 Labetalol HCl 10 mg 09/01/24 20:12 Labetalol Inj 5 Mg/Ml Vial 20 Ml IVP PRNMRX1 PRN SBP > 180 mmHg or DBP > 105 Ondansetron HCl 4 mg 09/01/24 19:31 Ondansetron Inj 2 Mg/Ml Inj 2 Ml IV 10/01/24 19:30 Q4HR PRN NAUSEA OR VOMITING Plan Summary: The patient is a 69-year-old male with a past medical history of reported hypertension and prediabetes, currently not on any medications who presented to the ED with expressive aphasia as well as numbness/tingling in the mouth and lips. #Expressive aphasia #Hypertensive crisis #Acute CVA rule out The patient reports that he was in his usual state of health until about 30 minutes prior to presentation when he started having some numbness and tingling in his mouth, to drink some juice and eat some food as he suspected that it was an episode of hypoglycemia but was unable to swallow. Tried to talk to son who noted that he had garbled speech and then he was brought to the ED. Initial vitals in the ED included a blood pressure of 204/99. A stroke alert was called and a head CT was done which was negative. As the patient was within the window, he received TNK after BP control with Nicardipine drip. Teleneuro recommended admission for acute CVA rule out Plan: - Repeat head CT post TNK - Follow-up with MRI and echocardiogram - Blood pressure management Case was discussed with attending physician, Dr Adi Irene MD PGY-1 Disclaimer: This note was dictated by speech recognition. Minor errors in overage shortage and damage clerk may be present due to voice recognition software. Attending Provider Attestation/Addendum I personally have reviewed the chart and agreed with resident's findings, assessment and plan of care. FU with MRI brain.
--- NOTE | 2024-09-02 13:16 | PD.ADDPROG ---
Addendum Progress Note Addendum Date of report being addended: 09/02/24 Narrative: Patient was admitted for stroke patient He had dysphagia appears to be also some symptoms of facial muscle weakness Patient received TNKase His CAT scan of the head and CTA of the head and neck was negative Patient is back into his baseline Still pending workup in the form of MRI This could be TIA however cannot rule out CVA until we do the MRI Final diagnosis TIA versus CVA status post TNK Plan Continue with aspirin and statin Get MRI of the brain Finish the rest of the workup including MRI and also echocardiogram Continue to manage hypertension
--- NOTE | 2024-09-02 15:10 | PC.SS ---
INNER TUBE CUTTER conducted bedside contact with the patient.? Patient currently admitted to ICU.? At bedside with patient was sister, Mariola Cortes .? Information for assessment provided by the patient?s sister.? Patient is retired.? Patient resides at home with son, Efraín Cortes.? Patient does not utilize DME to assist with ambulation.? Patient does not utilize home oxygen.? Patient is able to complete ADL?s independently.? Patient?s surrogate medical decision maker is sister, Mariola Cortes.? Patient?s PCP is Dr. Joseph.? Patient does not possess any specialty providers.? Plan is for the patient to return home at the time of discharge.? Family will provide transportation on behalf of the patient. ?No discharge needs identified by the patient.? No further intervention required at this time, healthcare social worker will be available to address any further concerns.? Next of Kin: Mariolamirela Cortes D/C Plan: Home
--- NOTE | 2024-09-02 16:42 | PD.RESPRO ---
Documentation for date of: 09/02/24 Subjective Subjective Interval history: 69 year old male with PMH of DM2 (not on medication, told well-controlled), HTN who presents to the ER for expresive aphasia. Symptoms started abruptly at 1900 so came to the ER. Denies headache, vision changes, weakness. No prior history of similar episodes. He is active and ambulatory at baseline. In the ER, stroke alert was called. BP was as high as SBP 200s. CT head was negative, and CTA neck showed no LVO. He was seen by tele-neuro, NIHSS score was 2 at that time 2+ for aphasia and tenecteplase was given at 20:30 and started on a nicardipine drip. He was subsequently admitted to ICU for 24 hrs observation post tenekteplase. 09/02: No overnight events, off nicardipine drip. NIHSS remains 2 (expressive aphasia). MRI done today and CT scheduled at 20:30 24 hrs post telekteplase. If no intracranial bleed then patient can be safely downgraded. Exam Vital Signs Temp Pulse Resp BP Pulse Ox O2 Del Method 97.1 F 59 L 17 149/73 H 97 Room Air 09/02/24 12:15 09/02/24 16:18 09/02/24 15:30 09/02/24 16:18 09/02/24 16:18 09/02/24 16:18 Narrative Exam GENERAL: Awake, alert and oriented. No acute distress. HEENT: Normocephalic, atraumatic and nontender.? Pupils are equal and reactive to light and accommodation.? Oral mucosa moist. NECK: Supple without adenopathy. Trachea midline. Nontender, carotid pulse 2+ bilaterally without bruits, no JVD.? CHEST: Heart rate and rythm normal, no murmurs, gallops auscultated. S1 & 2 normal insensity. Nontender on palpation, no deformity and no crepitus. LUNGS: Lung sounds are clear.? No wheezing, rales or ronchi.? No intercostal subcostal retraction. Room air ABDOMEN: Soft,symmetric , nontender, no guarding or rebound tenderness. No abnormal masses palpated.? No pulsatile masses or bruits.? Bowel sounds are normoactive in all 4 quadrants. EXTREMITIES: Nontender.? No pitting edema.? No cyanosis.? Patient is able to move all 4 extremities. SKIN: No rashes noted. NEURO:? NIHSS 2 expressive aphasia. Objective Labs 09/01/24 19:45 09/01/24 20:05 Labs: Laboratory Results - last 24 hr 09/01/24 09/01/24 09/01/24 19:45 20:05 22:12 WBC 5.4 RBC 4.73 Hgb 16.0 Hct 44.3 MCV 94 MCH 33.8 MCHC 36.1 RDW Std Deviation 44.1 H Plt Count 202 Neut % (Auto) 48 Lymph % (Auto) 37 [place] % (Auto) 8 Eos % (Auto) 5 Baso % (Auto) 2 Neut # (Auto) 2.6 Lymph # (Auto) 2.0 [place] # (Auto) 0.5 Eos # (Auto) 0.3 Baso # (Auto) 0.1 Immature Gran # (Auto) 0.01 H Absolute Nucleated RBC 0.00 Immature Gran % 0 Nucleated RBC % 0 PT 10.9 INR 1.0 APTT 27.1 Sodium 140 Potassium 3.8 Chloride 105 Carbon Dioxide 28.8 Anion Gap 6 L BUN 12 Creatinine 1.1 Estim Creat Clear Calc 62.5 eGFR > 60 BUN/Creatinine Ratio 11 L Glucose 173 H Calculated Osmolality 283 Calcium 9.3 Corrected Calcium 9.3 Magnesium 2.2 Total Bilirubin 0.7 AST 26 ALT 22 Alkaline Phosphatase 94 Troponin I < 0.020 Total Protein 7.6 Albumin 4.7 Globulin 2.9 Albumin/Globulin Ratio 1.6 Ur Collection Type Clean Catch Urine Color Colorless A Urine Clarity Clear Urine pH 7.5 H Ur Specific [place] 1.020 Urine Protein Negative Urine Glucose (UA) Negative Urine Ketones Negative Urine Blood Negative Urine Nitrite Negative Urine Bilirubin Negative Urine Urobilinogen (Auto) Negative Ur Leukocyte Esterase Negative Urine RBC 1 Urine WBC 0 Ur Squamous Epith Cells 0 Urine Bacteria None Urine Opiates Screen Negative Urine Fentanyl Screen Negative Ur Barbiturates Screen Negative U Amphetamin/Meth Scrn Negative U Benzodiazepines Scrn Negative U Cocaine Metab Screen Negative U Marijuana (THC) Screen Negative HCG (Qual) Cancelled Quality Measures Quality Measures none Advance care planning discussed with:: patient Assessment & Plan Assessment Current Active Medications: Generic Name Dose Route Start Last Admin Trade Name Freq PRN Reason Stop Dose Admin Acetaminophen 650 mg 09/01/24 23:28 Acetaminophen 325 Mg Tablet PO 10/01/24 23:27 Q6HR PRN Fever>101,headache,mild pain Nicardipine/Sodium Chloride 20 mg in 200 mls @ 50 mls/hr 09/01/24 20:12 09/02/24 05:00 Cardene Ivpb IV 10/01/24 20:11 3 mg/hr .Q4H PRN 30 mls/hr Per Nicardipine Stroke Protocol Titration Protocol 5 MG/HR Labetalol HCl 10 mg 09/01/24 20:12 Labetalol Inj 5 Mg/Ml Vial 20 Ml IVP PRNMRX1 PRN SBP > 185 mmHg and/or DBP > 110 Labetalol HCl 10 mg 09/01/24 20:12 Labetalol Inj 5 Mg/Ml Vial 20 Ml IVP PRNMRX1 PRN SBP > 180 mmHg or DBP > 105 Ondansetron HCl 4 mg 09/01/24 19:31 Ondansetron Inj 2 Mg/Ml Inj 2 Ml IV 10/01/24 19:30 Q4HR PRN NAUSEA OR VOMITING Plan 69 year old male with PMH of DM2 (not on medication, told well-controlled), HTN who presents to the ER for expresive aphasia. Symptoms started abruptly at 1900 so came to the ER. Denies headache, vision changes, weakness. No prior history of similar episodes. He is active and ambulatory at baseline. In the ER, stroke alert was called. BP was as high as SBP 200s. CT head was negative, and CTA neck showed no LVO. He was seen by tele-neuro, NIHSS score was 2 at that time 2+ for aphasia and tenecteplase was given at 20:30 and started on a nicardipine drip. He was subsequently admitted to ICU for 24 hrs observation post tenekteplase. 09/02: No overnight events, off nicardipine drip. NIHSS remains 2 (expressive aphasia). MRI done today and CT scheduled at 20:30 24 hrs post telekteplase. If no intracranial bleed then patient can be safely downgraded. PRE BILLING SPECIALIST #Acute stroke work up Initial NIHHS Score 2. Expressive aphasia CT head negative. CTA no LVO Given tenecteplase in the ER at 20:30 - Follow up MRI - Neuro checks - Echo - Lipid, A1c, TSH panel ordered - PT and HIDE DYER - Bedside swallow screen - Neurology Dr. Joshi consulted - Avoid invasive procedures for 24 hours post-tenecteplase to reduce risk of bleeding - CT 24 hrs post tpa CARDIOVASCULAR #Hypertensive Emergency, resolved - nicardipine drip for permissive HTN < 180/105 - labetolol prn RESPIRATORY No acute problems RENAL No acute problems GI No acute problems ENDO #History of DM2 Euglycemic - A1c pending HEME No acute problems ID No acute problems Health Maintenance Disposition: Admit to ICU for stroke s/p tenecteplase, safe to downgrade at 8:30 pm if no bleed noted in CT 24 hrs post tenekteplase Diet and fluids: Regular DVT prophylaxis: SCD GI prophylaxis: none Lines: PIV CODE STATUS: FULL I have reviewed and discussed the patient's care with my attending, Dr. Cristian MD PGY-3 Attending Provider Attestation/Addendum Please refer to my attestation addendum note
--- NOTE | 2024-09-02 16:46 | PC.PT ---
PT eval only. Patient is I with transfers and ambulation without AD.
--- NOTE | 2024-09-02 20:30 | XR_ITS ---
Examination: CT brain head without contrast. 2-D sagittal coronal reconstructions Date and time of exam:September 02, 2024 2054 hrs. Comparison January 02, 2025 0306 hrs. Indications: 24 hours post TPA for stroke CTDI: vol (mGy):51.0 DLP: (mGycm):1007 Technique: Multiple CT axial sections of the brain have been obtained, 5 mm slice thickness. Contrast has not been administered. 2-D sagittal, coronal reconstructions have been obtained Low dose protocols were performed. One or more of the following dose reduction techniques were used; automated exposure control, adjustment of the mA and/or KV according to patient size, use of iterative reconstruction technique. Findings: No significant ventricular enlargement. Low density in distribution of left middle cerebral artery Intra-axial or extra-axial hemorrhage density is not seen. No mass effect or midline shift Basal cisterns are not remarkable. Fourth ventricle is midline. Cranial vault intact. Impression: No interval acute hemorrhage, mass effect or midline shift
--- NOTE | 2024-09-02 21:17 | PD.RESEVENT ---
Documentation for date of: 09/02/24 Event Note Event Note: The patient is a 69-year-old male with a previous medical history of type 2 diabetes who was admitted to the ICU due to acute stroke, was in the window for thrombolysis and received tenecteplase. Repeat imaging showed ischemic lesion in the left parietal lobe. Patient continues to have aphasia. Patient will be downgraded to the floors 09/02/2024 and will be assigned to the floor team. Plan of care discussed with attending Dr. Davies. Griselda Pardo MD, PGY 1.
--- NOTE | 2024-09-02 21:20 | PD.HHPROG ---
Documentation for date of: 09/02/24 Subjective - Hospitalist Subjective Interval history: Patient is a 69 years old male with past medical history of diabetes, hypertension who was admitted on 09/01/2024 for management of acute CVA. Patient was admitted to ICU after receiving tenecteplase. He was also hypertensive and was started on nicardipine drip. Patient underwent MRI brain this afternoon which showed 37 x 20 mm acute infarct in left parietal lobe. Repeat head CT was done after 24 hours to check for any bleeding, was negative for acute hemorrhage, mass effect and midline shift. At bedside, patient appears comfortable, denies any new complaint but continues to have expressive aphagia. He is transferred to medical floor today after completing 24 hours of close observation in ICU status post tenecteplase. Review of Systems Review of Systems Systems Reviewed: All systems reviewed, normal except as documented Exam Vital Signs Temp Pulse Resp BP Pulse Ox O2 Del Method 97.3 F 51 L 16 159/86 H 99 Room Air 09/03/24 00:00 09/03/24 00:00 09/03/24 00:00 09/03/24 00:00 09/03/24 00:00 09/02/24 18:30 Narrative GENERAL: Awake, alert and oriented. Appears comfortable, saturating well on room air. HEENT: Normocephalic, atraumatic and nontender.? PERRLA, moist oral mucosa CHEST: RRR, no murmurs, gallops. LUNGS: Clear to auscultate bilaterally, no wheezing or crackles ABDOMEN: Soft, nontender, no organomegaly, bowel sounds present EXTREMITIES: No edema, strength 5 x 5, sensations intact NEURO: Expressive aphasia, no limb weakness Objective - Hospitalist Labs Diagram: 09/01/24 19:45 09/01/24 20:05 Assessment & Plan Plan: 69 years old male with past medical history of diabetes and hypertension admitted initially to ICU for management of acute CVA status post tenecteplase and nicardipine drip. # Acute CVA Patient presented with expressive aphasia, initial NIHSS score of [address] head and CTA head/neck was negative Received tenecteplase in the ED MRI shows 37 x 20 mm acute infarct of left parietal lobe CT head 24-hour after tenecteplase therapy is negative for any hemorrhage Frequent neurochecks Physical therapy, speech therapy Started on atorvastatin Neurology following, appreciate recommendations Pending echocardiography #Hypertensive Emergency, resolved Patient was initially on nicardipine drip Blood pressure has improved now but still on higher side Continues to be on labetalol as needed Started on lisinopril #History of diabetes mellitus Patient has hemoglobin A1c of 6.9 Started on insulin sliding scale Frequent glucose checks, hypoglycemia protocol in place Diet: Regular diet DVT prophylaxis: SCD CODE STATUS: FULL code Bud Davies MD Time Spent with Patient Time: Total time spent is greater than 50% in coordination of care (as documented) at patient's floor/unit and/or counseling patient: Time with patient: Greater than 35 minutes Reason for Continued Stay Reason for continued stay: acute CVA Quality Measures Quality Measures none Advance care planning discussed with:: patient
--- NOTE | 2024-09-02 22:03 | ECHO_ITS ---
Transthoracic Echo Report Ht (in): 69 Wt (lb): 181 Exam Location: Portable Status: Inpatient Athletic Coordinator: MIKY Brown^^^^ Indications: Procedure Performed: BP: 130 / 79 HR: 59 Technical Quality: Fair MEASUREMENTS (Male / Female) Normal Values 2D ECHO LV Diastolic Diameter PLAX 4.0 cm 4.2 - 5.9 / 3.9 - 5.3 cm LV Systolic Diameter PLAX 2.4 cm IVS Diastolic Thickness 1.2 cm 0.6 - 1.0 / 0.6 - 0.9 cm LVPW Diastolic Thickness 0.9 cm 0.6 - 1.0 / 0.6 - 0.9 cm LV Relative Wall Thickness 0.5 LVOT Diameter 1.9 cm Aortic Root Diameter 3.5 cm LA Systolic Diameter LX 4.0 cm 3.0 - 4.0 / 2.7 - 3.8 cm LA Volume Index 18.9 cm?/m? 16 - 28 cm?/m? Ascending Aorta Diameter 4.1 cm DOPPLER AV Peak Velocity 137.0 cm/s AV Peak Gradient 7.5 mmHg AV Mean Gradient 6.0 mmHg AV Velocity Time Integral 32.7 cm AI Peak Velocity 367.5 cm/s AI Peak Gradient 54.0 mmHg AI Pressure Half Time 1372.0 ms LVOT Peak Velocity 99.8 cm/s LVOT Peak Gradient 4.0 mmHg LVOT Velocity Time Integral 28.8 cm LVOT Cardiac Index 2393.0 cm?/min?m? AV Area Cont Eq vti 2.5 cm? AV Area Cont Eq pk 2.1 cm? MV Area PHT 1.9 cm? Mitral E Point Velocity 41.1 cm/s Mitral A Point Velocity 74.2 cm/s Mitral E to A Ratio 0.6 LV E' Lateral Velocity 9.9 cm/s Mitral E to LV E' Lateral Ratio 4.2 LV E' Septal Velocity 7.7 cm/s Mitral E to LV E' Septal Ratio 5.4 TR Peak Velocity 218.5 cm/s TR Peak Gradient 19.1 mmHg PV Peak Velocity 90.4 cm/s PV Peak Gradient 3.3 mmHg RVOT Peak Velocity 36.9 cm/s FINDINGS Left Ventricle Normal left ventricular size, wall thickness, systolic function with no obvious regional wall motion abnormalities. There is grade I diastolic dysfunction of the left ventricle (impaired relaxation pattern). The left ventricular ejection fraction is normal, estimated at 55-60%. Right Ventricle The right ventricle is normal in size and systolic function. The estimated right ventricular systolic pressure, 21 mmHg. Left Atrium The left atrium is normal by two-dimensional, color flow and Doppler imaging with no structural abnormalities, no thrombus formation present. Right Atrium The right atrium is normal by two-dimensional imaging, color flow and Doppler imaging with no structural abnormalities, no thrombus formation present. Atrial Septum The interatrial septum is normal to color flow Doppler and agitated saline imaging. Aorta The aorta is normal by two-dimensional, color flow and Doppler interrogation. Mitral Valve Trace to mild mitral regurgitation. Mild mitral annular calcification. Aortic Valve Aortic valve sclerosis. Mild aortic valve regurgitation. Tricuspid Valve There is mild tricuspid valve regurgitation. Pulmonic Valve Trivial pulmonic valve regurgitation. Vessels The pulmonary artery appears normal. The inferior vena cava pulmonary and hepatic veins appear normal. Pericardium The pericardium is normal by two-dimensional imaging. There is no significant pericardial effusion. CONCLUSIONS Indication: Stroke Bubble study negative for any PFO or ASD. Consider CELESTINO if high index of clinical suspicion. Normal LV size and function with an EF of 55 to 60%. Diastolic dysfunction stage I. Normal RV size and function with normal RVSP. Mild TR Mild MAC and mild MR. Mild aortic valve sclerosis with trace AI. Brennon Segovia (Electronically Signed) Final Date: 03 September 2024 06:16
[2024-09-03] VITALS (11 sets, daily range): BP systolic 133–177; BP diastolic 80–104; PULSE 51–99; RESP 13–30; TEMP 36.3–36.8; O2SAT 96–100; BMI 25.2
[2024-09-03 05:26] LABS: Basophils # (Auto) 0.1 Thou/mm3 (0.0-0.2); Basophils % (Auto) 1 % (0-2.5); Eosinophils # (Auto) 0.2 Thou/mm3 (0.0-0.5); Eosinophils % (Auto) 3 % (0-10); Hematocrit 49.7 % (41.0-53.0); Hemoglobin 17.2 g/dL (13.5-16.0); Immature Granulocytes % (Auto) 0 % (0-0); Immature Granulocytes Auto 0.01 Thou/mm3 (0.00-0.00); Lymphocytes # (Auto) 1.5 Thou/mm3 (1.0-4.8); Lymphocytes % (Auto) 25 % (10-50); Mean Corpuscular HGB Conc 34.6 g/dl (31.0-37.0); Mean Corpuscular Hemoglobin 33.4 pg (25.0-35.0); Mean Corpuscular Volume 97 fL (80-100); Monocytes # (Auto) 0.6 Thou/mm3 (0.0-0.8); Monocytes % (Auto) 9 % (0-12); Neutrophils # (Auto) 3.8 Thou/mm3 (1.8-7.7); Neutrophils % (Auto) 61 % (37-80); Nucleated Red Blood Cell % 0 /100 WBC (0); Platelet Count 157 Thou/mm3 (140-440); RDW Standard Deviation 45.3 fL (35.1-43.9); Red Blood Count 5.15 Miln/mm3 (4.50-5.90); White Blood Count 6.2 Thou/mm3 (3.8-10.6)
[2024-09-03 05:55] LABS: Anion Gap 7 (7-16); BUN/Creatinine Ratio 15 Ratio (12-20); Blood Urea Nitrogen 15 mg/dL (9-23); Calcium 9.4 mg/dL (8.3-10.6); Carbon Dioxide 25.7 mMol/L (20.0-31.0); Cardiac Risk Estimate 5.2 RATIO (4.0-6.7); Chloride 107 mMol/L (98-107); Cholesterol 230 mg/dL (132-200); Estimated Creatinine Clearance 68.7 mL/min (>60); Glucose 133 mg/dL (74-106); HDL Cholesterol 44 mg/dL (40-60); LDL Cholesterol,Calculated 155 mg/dL (0-130); Osmolality,Calculated 282 (275-295); Potassium 4.9 mMol/L (3.4-5.1); Sodium 140 mMol/L (136-145); Thyroid Stimulating Hormone 2.67 uIU/mL (0.55-4.78); Triglycerides 156 mg/dL (30-150); eGFR > 60 See Note
[2024-09-03] MEDS: Lisinopril 2.5 MG TABLET 10 MG PO ×2 (08:15→08:43)
[2024-09-03] MEDS: ASPIRIN EC 81 MG TABEC PO (08:44)
[2024-09-03] MEDS: CLOPIDOGREL BISULFATE 75 MG TABLET PO (11:12)
[2024-09-03] MEDS: INSULIN LISPRO (AdmeLOG) 1 UNIT/0.01 ML UNIT SC (11:55)
--- NOTE | 2024-09-03 12:11 | ESPR_ITS ---
Documentation for date of: 09/03/24 Subjective Subjective Interval history: Patient seen and examined at bedside. No acute overnight events. Repeat head CT was negative for acute hemorrhage. Brain MRI showed 37 x 20mm acute infarct in the left parietal lobe. At bedside, he still has expressive aphasia although family at bedside reports that it might be slightly better today. Patient started on aspirin, plavix and atorvastatin. Echocardiogram showed EF 55-60% with diastolic dysfunction stage I. Exam Vital Signs Temp Pulse Resp BP Pulse Ox O2 Del Method 97.5 F 62 15 169/82 H 99 Room Air 09/03/24 08:00 09/03/24 08:43 09/03/24 08:00 09/03/24 08:43 09/03/24 08:00 09/02/24 18:30 Narrative Exam GENERAL: AAOX3 NEURO: Strength preserved-5/5 in bilateral upper and lower extremities. Sensation intact, intention tremors, normal [id number] and heel to rooney, no nystagmus. Expressive aphasia. HEENT: Moist mucosa. Eyes open, symmetrical, & clear CARDIO: No chest pain on palpation. Heart RRR, no obvious murmurs PULM: No noted coughing/dyspnea. Lungs CTA B/L GI: Abdomen soft, nondistended, no pain on palpation. BSx4 URO/PEDIATRIC NEUROLOGIST:: No further abnormalities noted. SKIN/MSK/EXT: No wounds/rashes/edema/amputations, no pain on palpation. Pedal pulses present B/L Objective Labs 09/04/24 04:26 09/04/24 04:26 Labs: Laboratory Results - last 24 hr 09/03/24 04:31 WBC 6.2 RBC 5.15 Hgb 17.2 H Hct 49.7 MCV 97 MCH 33.4 MCHC 34.6 RDW Std Deviation 45.3 H Plt Count 157 D Neut % (Auto) 61 Lymph % (Auto) 25 [place] % (Auto) 9 Eos % (Auto) 3 Baso % (Auto) 1 Neut # (Auto) 3.8 Lymph # (Auto) 1.5 [place] # (Auto) 0.6 Eos # (Auto) 0.2 Baso # (Auto) 0.1 Immature Gran # (Auto) 0.01 H Absolute Nucleated RBC 0.00 Immature Gran % 0 Nucleated RBC % 0 Sodium 140 Potassium 4.9 D Chloride 107 Carbon Dioxide 25.7 Anion Gap 7 BUN 15 Creatinine 1.0 Estim Creat Clear Calc 68.7 eGFR > 60 BUN/Creatinine Ratio 15 Glucose 133 H Calculated Osmolality 282 Calcium 9.4 Magnesium 2.0 Triglycerides 156 H Cholesterol 230 H LDL Cholesterol, Calc 155 H HDL Cholesterol 44 Cholesterol/HDL Ratio 5.2 TSH 2.67 Quality Measures Quality Measures none Advance care planning discussed with:: patient and other Assessment & Plan Assessment Current Active Medications: Generic Name Dose Route Start Last Admin Trade Name Freq PRN Reason Stop Dose Admin Acetaminophen 650 mg 09/01/24 23:28 Acetaminophen 325 Mg Tablet PO 10/01/24 23:27 Q6HR PRN Fever>101,headache,mild pain Aspirin 81 mg 09/03/24 09:00 09/03/24 08:44 Aspirin Ec 81 Mg Tabec PO 10/03/24 08:59 81 mg QDAY RACHEL Administration Atorvastatin Calcium 80 mg 09/03/24 21:00 Atorvastatin Calcium 20 Mg Tablet PO 10/03/24 20:59 HS RACHEL Clopidogrel Bisulfate 75 mg 09/03/24 10:30 09/03/24 11:12 Clopidogrel Bisulfate 75 Mg Tablet PO 10/03/24 10:29 75 mg QDAY RACHEL Administration Dextrose 25 ml 09/02/24 21:12 Dextrose 50%-Water Inj 50 Ml Syringe IV 10/02/24 21:11 Q15MIN PRN BG 50-70 responsive npo pt Dextrose 50 ml 09/02/24 21:12 Dextrose 50%-Water Inj 50 Ml Syringe IV 10/02/24 21:11 Q15MIN PRN BG <50 OR BG <70 & pt unresponsive Glucagon 1 mg 09/02/24 21:12 Glucagon Inj 1 Mg Vial IM Q15MIN PRN BG <70, and no IV access Insulin Human Lispro 0 unit 09/03/24 07:30 09/03/24 11:55 Insulin Lispro (Admelog) 1 Unit/0.01 Ml Unit SC 10/03/24 07:29 1 unit AC RACHEL Administration Protocol Labetalol HCl 10 mg 09/01/24 20:12 Labetalol Inj 5 Mg/Ml Vial 20 Ml IVP PRNMRX1 PRN SBP > 185 mmHg and/or DBP > 110 Labetalol HCl 10 mg 09/01/24 20:12 Labetalol Inj 5 Mg/Ml Vial 20 Ml IVP PRNMRX1 PRN SBP > 180 mmHg or DBP > 105 Lisinopril 20 mg 09/04/24 09:00 Lisinopril 20 Mg Tablet PO 10/04/24 08:59 QDAY RACHEL Ondansetron HCl 4 mg 09/01/24 19:31 Ondansetron Inj 2 Mg/Ml Inj 2 Ml IV 10/01/24 19:30 Q4HR PRN NAUSEA OR VOMITING Plan Summary: The patient is a 69-year-old male with a past medical history of reported hypertension and prediabetes, currently not on any medications who presented to the ED with expressive aphasia as well as numbness/tingling in the mouth and lips. #Expressive aphasia #Hypertensive crisis #Acute infarct of parietal lobe The patient reports that he was in his usual state of health until about 30 minutes prior to presentation when he started having some numbness and tingling in his mouth, to drink some juice and eat some food as he suspected that it was an episode of hypoglycemia but was unable to swallow. Tried to talk to son who noted that he had garbled speech and then he was brought to the ED. Initial vitals in the ED included a blood pressure of 204/99. A stroke alert was called and a head CT was done which was negative. As the patient was within the window, he received TNK after BP control with Nicardipine drip. Teleneuro recommended admission for acute CVA rule out Repeat CT scan negative for interval hemorrhage. MRI brain showed a [id number] acute infarct in the left parietal lobe. Echocardiogram showed an ejection fraction of 55-60%, normal LV size with stage I diastolic dysfunction. Plan: - Aspirin, Plavix and Statin for the first 21days. - Ensure optimal blood pressure management - Speech therapy as an outpatient -Follow up with Neurology within two weeks of discharge Case was discussed with attending physician, Dr Adi Irene MD PGY-1 Disclaimer: This note was dictated by speech recognition. Minor errors in aircraft general repair mechanic may be present due to voice recognition software. Attending Provider Attestation/Addendum I personally have seen and examined the patient at the bedside and I agreed with resident's findings, assessment and plan of care. stable for discharge home in ASA, plavisa and statin. FU in 2 weeks. Continue with speech therapy as an outpatient.
--- NOTE | 2024-09-03 14:10 | PC.NURSE ---
Cartridge Assembling Machine Adjuster: Met with patient and his sister. Pt was awake and attentive. We reviewed: 1. the BE FAST 2. Calling 911 3. BP Management 2. medication for cholestrol 3. post-stroke depression - i suggested he follow up with his primary care doctor if he starts feeling blue or down. 4. speech difficulties - i got him a pencil and paper - he is able to write in cursive and print. we discussed being patient with his recovery. I wrote down his lipid panel and blood pressure in his stroke education book.
--- NOTE | 2024-09-03 15:23 | PD.RESPRO ---
Documentation for date of: 09/03/24 Subjective Subjective Interval history: No overnight events. Patient seen examined at bedside, resting comfortably. Patient continues to have aphasia with word finding difficulties, no other focal neurological deficits. Patient denies fever, chills, chest pain, shortness of breath, nausea, vomiting, paresthesias, muscle weakness. Following neurology recommendations. Probable discharge tomorrow. Exam Vital Signs Temp Pulse Resp BP Pulse Ox O2 Del Method 98.2 F 62 21 H 154/87 H 99 Room Air 09/03/24 12:00 09/03/24 12:00 09/03/24 12:09/03/24 12:09/03/24 12:09/02/24 18:30 Narrative Exam PE: Gen: Well-developed and well-nourished. HEENT: NCAT, PERRLA, EOMI, MMM, anicteric conjunctivae. CVS: normal S1 and S2. RRR. No M/R/G. Resp: CTA B/L. No rhonchi, rales, crackles or wheezing. Abd: soft, non-tender, non-distended. BS+ in all 4 quadrants. MSK: Good ROM in BUE & BLE. No edema or rash. Neuro: CN II-XII grossly intact. Strength 5/5 in BUE & BLE. Alert and oriented x3. Expressive aphasia. Psych: appropriate mood and affect. Objective Labs 09/03/24 04:31 09/03/24 04:31 Labs: Laboratory Results - last 24 hr 09/03/24 04:31 WBC 6.2 RBC 5.15 Hgb 17.2 H Hct 49.7 MCV 97 MCH 33.4 MCHC 34.6 RDW Std Deviation 45.3 H Plt Count 157 D Neut % (Auto) 61 Lymph % (Auto) 25 [place] % (Auto) 9 Eos % (Auto) 3 Baso % (Auto) 1 Neut # (Auto) 3.8 Lymph # (Auto) 1.5 [place] # (Auto) 0.6 Eos # (Auto) 0.2 Baso # (Auto) 0.1 Immature Gran # (Auto) 0.01 H Absolute Nucleated RBC 0.00 Immature Gran % 0 Nucleated RBC % 0 Sodium 140 Potassium 4.9 D Chloride 107 Carbon Dioxide 25.7 Anion Gap 7 BUN 15 Creatinine 1.0 Estim Creat Clear Calc 68.7 eGFR > 60 BUN/Creatinine Ratio 15 Glucose 133 H Calculated Osmolality 282 Calcium 9.4 Magnesium 2.0 Triglycerides 156 H Cholesterol 230 H LDL Cholesterol, Calc 155 H HDL Cholesterol 44 Cholesterol/HDL Ratio 5.2 TSH 2.67 Quality Measures Quality Measures VTE prophylaxis Advance care planning discussed with:: patient Assessment & Plan Assessment Current Active Medications: Generic Name Dose Route Start Last Admin Trade Name Reynaldo PRN Reason Stop Dose Admin Acetaminophen 650 mg 09/01/24 23:28 Acetaminophen 325 Mg Tablet PO 10/01/24 23:27 Q6HR PRN Fever>101,headache,mild pain Aspirin 81 mg 09/03/24 09:00 09/03/24 08:44 Aspirin Ec 81 Mg Tabec PO 10/03/24 08:59 81 mg QDAY RACHEL Administration Atorvastatin Calcium 80 mg 09/03/24 21:00 Atorvastatin Calcium 20 Mg Tablet PO 10/03/24 20:59 HS RACHEL Clopidogrel Bisulfate 75 mg 09/03/24 10:30 09/03/24 11:12 Clopidogrel Bisulfate 75 Mg Tablet PO 10/03/24 10:29 75 mg QDAY RACHEL Administration Dextrose 25 ml 09/02/24 21:12 Dextrose 50%-Water Inj 50 Ml Syringe IV 10/02/24 21:11 Q15MIN PRN BG 50-70 responsive npo pt Dextrose 50 ml 09/02/24 21:12 Dextrose 50%-Water Inj 50 Ml Syringe IV 10/02/24 21:11 Q15MIN PRN BG <50 OR BG <70 & pt unresponsive Glucagon 1 mg 09/02/24 21:12 Glucagon Inj 1 Mg Vial IM Q15MIN PRN BG <70, and no IV access Insulin Human Lispro 0 unit 09/03/24 07:30 09/03/24 11:55 Insulin Lispro (Admelog) 1 Unit/0.01 Ml Unit SC 10/03/24 07:29 1 unit AC RACHEL Administration Protocol Labetalol HCl 10 mg 09/01/24 20:12 Labetalol Inj 5 Mg/Ml Vial 20 Ml IVP PRNMRX1 PRN SBP > 185 mmHg and/or DBP > 110 Labetalol HCl 10 mg 09/01/24 20:12 Labetalol Inj 5 Mg/Ml Vial 20 Ml IVP PRNMRX1 PRN SBP > 180 mmHg or DBP > 105 Lisinopril 20 mg 09/04/24 09:00 Lisinopril 20 Mg Tablet PO 10/04/24 08:59 QDAY RACHEL Ondansetron HCl 4 mg 09/01/24 19:31 Ondansetron Inj 2 Mg/Ml Inj 2 Ml IV 10/01/24 19:30 Q4HR PRN NAUSEA OR VOMITING Plan 69 years old male with past medical history of diabetes and hypertension admitted initially to ICU for management of acute CVA status post tenecteplase and nicardipine drip. Patient downgraded after 24 hours to floors for further management. # Acute CVA Patient presented with expressive aphasia, initial NIHSS score of 2. Initial CT head and CTA head/neck was negative, MRI shows 37 x 20 mm acute infarct of left parietal lobe. Received tenecteplase in the ED. CT head 24-hour after tenecteplase therapy is negative for any hemorrhage. Echocardiogram negative bubble study, grade 1 diastolic dysfunction. Seen by physical therapy and speech therapy, recommended chopped diet. -Frequent neurochecks -Started on atorvastatin, aspirin, Plavix -Neurology following, appreciate recommendations #Hypertensive Emergency, resolved Patient was initially on nicardipine drip. Blood pressure has improved now but still on higher side. -Labetalol as needed. -Lisinopril 20 mg p.o. daily #History of diabetes mellitus Patient has hemoglobin A1c of 6.9. Does not take medications at home. -Started on insulin sliding scale -Frequent glucose checks, hypoglycemia protocol in place Lines: Peripheral IV Diet: Chopped diet DVT prophylaxis: SCD CODE STATUS: FULL code Plan of care discussed with attending Dr. Moore. Efraín Muñoz MD PGY?1 Attending Provider Attestation/Addendum I reviewed labs, imaging, EKG, home medications and prior available records. Face to face evaluation was performed by me. I have personally examined the patient and discussed assessment and plan with the IM team. I reviewed the resident note and agree with the plan with exceptions as below. Left parietal CVA Status post tPA Uncontrolled hypertension Expressive aphasia Type 2 diabetes mellitus with hyperglycemia Status post tPA. Neurochecks are stable MRI did confirm the left parietal CVA Continue aspirin, Plavix, and atorvastatin Started lisinopril 20 mg daily. Monitor BP Seen by speech therapy: Advanced diet to regular diet Ordered PT: He is independent Neurology consulted
--- NOTE | 2024-09-03 16:22 | PC.SS ---
Rounding Note: Blood pressure being controlled. Plan is to discharge patient home tomorrow.
[2024-09-03] MEDS: ATORVASTATIN CALCIUM 20 MG TABLET 80 MG PO (21:21)
[2024-09-04] VITALS (7 sets, daily range): BP systolic 118–144; BP diastolic 61–86; PULSE 54–89; RESP 12–23; TEMP 35.9–36.6; O2SAT 96–99; BMI 25.7
[2024-09-04 06:01] LABS: Basophils # (Auto) 0.1 Thou/mm3 (0.0-0.2); Basophils % (Auto) 1 % (0-2.5); Eosinophils # (Auto) 0.2 Thou/mm3 (0.0-0.5); Eosinophils % (Auto) 4 % (0-10); Hematocrit 46.8 % (41.0-53.0); Hemoglobin 16.5 g/dL (13.5-16.0); Immature Granulocytes % (Auto) 0 % (0-0); Immature Granulocytes Auto 0.01 Thou/mm3 (0.00-0.00); Lymphocytes # (Auto) 1.3 Thou/mm3 (1.0-4.8); Lymphocytes % (Auto) 24 % (10-50); Mean Corpuscular HGB Conc 35.3 g/dl (31.0-37.0); Mean Corpuscular Volume 97 fL (80-100); Monocytes # (Auto) 0.5 Thou/mm3 (0.0-0.8); Monocytes % (Auto) 9 % (0-12); Neutrophils # (Auto) 3.6 Thou/mm3 (1.8-7.7); Neutrophils % (Auto) 63 % (37-80); Nucleated Red Blood Cell % 0 /100 WBC (0); Platelet Count 200 Thou/mm3 (140-440); RDW Standard Deviation 44.9 fL (35.1-43.9); Red Blood Count 4.85 Miln/mm3 (4.50-5.90); White Blood Count 5.7 Thou/mm3 (3.8-10.6)
[2024-09-04 06:36] LABS: Anion Gap 8 (7-16); BUN/Creatinine Ratio 22 Ratio (12-20); Blood Urea Nitrogen 22 mg/dL (9-23); Calcium 9.5 mg/dL (8.3-10.6); Chloride 107 mMol/L (98-107); Estimated Creatinine Clearance 66.5 mL/min (>60); Glucose 134 mg/dL (74-106); Magnesium 1.9 mg/dL (1.6-2.6); Osmolality,Calculated 284 (275-295); Potassium 4.3 mMol/L (3.4-5.1); Sodium 140 mMol/L (136-145); eGFR > 60 See Note
[2024-09-04] MEDS: Lisinopril 20 MG TABLET PO (08:40)
[2024-09-04] MEDS: CLOPIDOGREL BISULFATE 75 MG TABLET PO (08:40)
[2024-09-04] MEDS: ASPIRIN EC 81 MG TABEC PO (08:40)
--- NOTE | 2024-09-04 10:47 | PD.RESDS ---
Planned Discharge Date 09/04/24 DS: Providers Provider Date of admission: 09/01/24 22:02 Primary care physician: Physician No Primary/Family Admitting Provider: Bud Davies MD Attending Provider on Admission: Reagan Moore MD Consults: 09/01/24 19:31 Consult to Neurology / Tele-Neurology Routine Comment: Consulting Provider: [facility] 09/01/24 22:05 Consult to Neurology / Tele-Neurology Stat Comment: stroke with expressive aphasia Consulting Provider: Will Joshi 09/01/24 23:27 Referral Speech Therapy Routine Comment: 09/02/24 11:00 Referral - [facility] Activity Therapist Routine Comment: armand Blanton 09/03/24 07:00 Referral Physical Therapy Routine Comment: Physician Instructions: Attending Provider on DC: Reagan Moore MD Discharging Provider: Efraín Muñoz MD DS: Diagnosis Problem List Completed Was Problem List Reviewed/Reconciled?: Yes Hospital Course Hospital Course Hospital course: 69 year old male with PMH of DM2 (not on medication, told well-controlled), HTN who presented to the ER for difficulty speaking, was admitted for acute stroke workup. Patient had acute ischemic stroke as confirmed by MRI in the left parietal region. Patient was treated with tenecteplase, also placed on a nicardipine drip due to significant hypertension. Patient sent to ICU for monitoring, 24-hour CT showed no hemorrhage. Patient had expressive aphasia, mild dysphagia, no other focal neurological deficits. Patient was started on dual antiplatelet therapy and statin, evaluated by neurology. Patient cleared for discharge and outpatient follow-up from neurology perspective. Patient medically stable and cleared for discharge. Discharge planning: You have been started on the following medications: - Aspirin 81 mg daily - Plavix 75 mg for 20 days - Lisinopril 20 mg daily - Atorvastatin 80 mg daily Please follow-up with your primary doctor within 2 weeks. Please follow-up with neurology for further management of stroke. Please follow-up with speech therapy outpatient, seek referral from her primary doctor. Please return to the ED if you have new or worsening symptoms. Diagnoses: # Acute CVA #Hypertensive Emergency, resolved #History of diabetes mellitus Plan of care discussed with attending Dr. Moore. Efraín Muñoz MD PGY?1 Status at Discharge Overall status at discharge: patient is not back to baseline Time Spent with Patient Time attestation: Total time spent providing and/or coordinating discharge services: Time spent: Greater than 30 minutes Exam Vital Signs Temp Pulse Resp BP Pulse Ox O2 Del Method 97.8 F 61 16 120/61 96 Room Air 09/04/24 08:00 09/04/24 08:40 09/04/24 08:00 09/04/24 08:40 09/04/24 08:00 09/04/24 08:00 Narrative Exam PE: Gen: Well-developed and well-nourished. HEENT: NCAT, PERRLA, EOMI, MMM, anicteric conjunctivae. CVS: normal S1 and S2. RRR. No M/R/G. Resp: CTA B/L. No rhonchi, rales, crackles or wheezing. Abd: soft, non-tender, non-distended. BS+ in all 4 quadrants. MSK: Good ROM in BUE & BLE. No edema or rash. Neuro: CN II-XII grossly intact. Strength 5/5 in BUE & BLE. Alert and oriented x3. Expressive aphasia. Psych: appropriate mood and affect. Discharge Plan Plan Patient Disposition: HOME (Self Care) Patient condition on transfer: Stable Care Plan Goals: You have been started on the following medications: - Aspirin 81 mg daily - Plavix 75 mg for 20 days - Lisinopril 20 mg daily - Atorvastatin 80 mg daily Please follow-up with your primary doctor within 2 weeks. Please follow-up with neurology for further management of stroke. Please follow-up with speech therapy outpatient, seek referral from her primary doctor. Please return to the ED if you have new or worsening symptoms. Prescriptions/Referrals Prescriptions/Med Rec: New aspirin [Ecotrin Low Strength] 81 mg Tablet,Delayed Release (Dr/Ec) 81 mg PO QDAY 30 Days Qty: 30 0RF clopidogrel 75 mg Tablet 75 mg PO QDAY 20 Days Qty: 20 0RF lisinopril 20 mg Tablet 20 mg PO QDAY 30 Days Qty: 30 0RF atorvastatin 80 mg tablet 80 mg PO QPM 30 Days Qty: 30 0RF Referrals: No Primary/Family,Physician [Primary Care Provider] - Will Joshi MD [Physician] - Patient/Caregiver Discharge Instructions Discharge Activity: activity as tolerated Education Materials: Using Blood Thinners Anticoagulants, Stroke: Resources and Support, Stroke: Tips for Swallowing, Hypertension Stroke Link, Discharge Instructions for Stroke, Stroke Self Care After, Healthy Lifestyle to Prevent ... Print Language: Hungarian Stand Alone Forms: [place] Award Info., Patient Portal Info Letter Discharge Order Discharge Orders: Discharge (Routine); Ordered 09/04/24 Ordered By: Efraín Muñoz Quality Discharge Quality Measures VTE prophylaxis MD Attestestation MD Attestation I reviewed labs, imaging, EKG, home medications and prior available records. Face to face evaluation was performed by me. I have personally examined the patient and discussed assessment and plan with the IM team. I reviewed the resident note and agree with the plan with exceptions as below. Left parietal CVA Status post tPA Uncontrolled hypertension Expressive aphasia Type 2 diabetes mellitus with hyperglycemia Status post tPA. Neurochecks are stable MRI did confirm the left parietal CVA Continue aspirin, Plavix, and atorvastatin Started lisinopril 20 mg daily. Monitor BP Seen by speech therapy: Advanced diet to regular diet Ordered PT: Ordered home health for speech therapy Outpatient follow-up with nephrology Time spent is 40 minutes. More than 50% of the time was spent on patient education and coordination of care.
--- NOTE | 2024-09-04 13:29 | PC.SS ---
CLINICAL MASSAGE THERAPIST informed that patient will need home health for speech therapy. Bedside nurse notified. Patient identified no preferred provider for home health services.
--- NOTE | 2024-09-04 17:00 | PD.VPROG1 ---
Telemedicine visit statement This visit was conducted with the use of interactive audio and video telecommunications system that permits real time communication between the patient and the provider. Patient's verbal consent for virtual visit was obtained on 09/04/24. Documentation for date of: 09/04/24 Subjective Subjective Interval history: Patient was seen in Telemetry with virtual visit. Still with language deficit, but improving. Virtual exam Vital Signs Temp Pulse Resp BP Pulse Ox O2 Del Method 97.0 F 89 12 144/86 H 99 Room Air 09/04/24 14:50 09/04/24 14:50 09/04/24 14:50 09/04/24 14:50 09/04/24 14:50 09/04/24 14:50 Objective Labs 09/04/24 04:26 09/04/24 04:26 Labs: Laboratory Results - last 24 hr 09/04/24 04:26 WBC 5.7 RBC 4.85 Hgb 16.5 H Hct 46.8 MCV 97 MCH 34.0 MCHC 35.3 RDW Std Deviation 44.9 H Plt Count 200 D Neut % (Auto) 63 Lymph % (Auto) 24 [place] % (Auto) 9 Eos % (Auto) 4 Baso % (Auto) 1 Neut # (Auto) 3.6 Lymph # (Auto) 1.3 [place] # (Auto) 0.5 Eos # (Auto) 0.2 Baso # (Auto) 0.1 Immature Gran # (Auto) 0.01 H Absolute Nucleated RBC 0.00 Immature Gran % 0 Nucleated RBC % 0 Sodium 140 Potassium 4.3 D Chloride 107 Carbon Dioxide 25.0 Anion Gap 8 BUN 22 Creatinine 1.0 Estim Creat Clear Calc 66.5 eGFR > 60 BUN/Creatinine Ratio 22 H Glucose 134 H Calculated Osmolality 284 Calcium 9.5 Magnesium 1.9 Assessment & Plan Assessment The patient is a 69-year-old male with a past medical history of reported hypertension and prediabetes, currently not on any medications who presented to the ED with expressive aphasia as well as numbness/tingling in the mouth and lips. #Expressive aphasia #Hypertensive crisis #Acute infarct of parietal lobe The patient reports that he was in his usual state of health until about 30 minutes prior to presentation when he started having some numbness and tingling in his mouth, to drink some juice and eat some food as he suspected that it was an episode of hypoglycemia but was unable to swallow. Tried to talk to son who noted that he had garbled speech and then he was brought to the ED. Initial vitals in the ED included a blood pressure of 204/99. A stroke alert was called and a head CT was done which was negative. As the patient was within the window, he received TNK after BP control with Nicardipine drip. Teleneuro recommended admission for acute CVA rule out Repeat CT scan negative for interval hemorrhage. MRI brain showed a [id number] acute infarct in the left parietal lobe. Echocardiogram showed an ejection fraction of 55-60%, normal LV size with stage I diastolic dysfunction. Plan: - Aspirin, Plavix and Statin for the first 21days and then plavix and statin alone for mcc - Speech therapy as an outpatient -Follow up with me in two weeks of discharge
--- NOTE | 2024-09-05 09:06 | PC.CC ---
Addendum entered by Adrian Connolly RN 09/05/24 10:32: [facility] accepted the pt. [facility] Start of care date with [facility] is Saturday09/07/24. Original Note: No documentation from [facility] on pt. preference of HH agency. HH referral sent on [facility]. Awaiting responses. Pending Start of care date.
== END 2024-09-04 14:52 | disposition home health service (06) | DRG 62 ==
LOC: SERX 21:35 → SERHOLD 09-02 06:34 → S2SX 09-02 06:35 → S2NX 09-03 23:51
PROVIDERS: Registered Nurse General Practice; Student in an Organized Health Care Education/Training Program; Admitting Provider Student in an Organized Health Care Education/Training Program; Emergency Provider Emergency Medicine; Visit Provider Student in an Organized Health Care Education/Training Program
DX: I63.50 Cerebral infarction due to unspecified occlusion or stenosis of unspecified cerebral artery (principal); I16.1 Hypertensive emergency; R47.01 Aphasia; R13.10 Dysphagia, unspecified; G93.89 Other specified disorders of brain; R29.702 NIHSS score 2; I11.9 Hypertensive heart disease without heart failure; E11.65 Type 2 diabetes mellitus with hyperglycemia; Z79.899 Other long term (current) drug therapy; Z79.82 Long term (current) use of aspirin; Z79.02 Long term (current) use of antithrombotics/antiplatelets
CPT/HCPCS: 36415; 70450; 70496; 70498; 70544; 80048; 80053; 80061; 80307; 81001; 83735; 84443; 84484; 84703; 85025; 85610; 85730; 87081; 87086; 92610; 93005; 93306; 96365; 96366; 97162; 99285; A4649; J1815; J2404; J3101; Q9967; A9270

== ENCOUNTER → 2024-09-10 | Outpatient (CLI) | payer MEDICARE, BC, SELFPAY ==
[2024-09-15 22:04] LABS: PSA, Free 0.69 ng/mL; PSA, Total 5.7 ng/mL (< OR = 4.0)
[2024-09-16 06:49] LABS: PSA, % Free 12 % (calc) (>25)
== END | disposition home or self-care (01) ==
LOC: COPL 07:22
PROVIDERS: PCP Family Medicine; Referring Provider Urology; Visit Provider Urology
DX: N40.1 Benign prostatic hyperplasia with lower urinary tract symptoms (principal)
CPT/HCPCS: 36415; 84153; 84154

== ENCOUNTER → 2024-09-15 | Outpatient (BNVA) | payer MEDICARE, BC, SELFPAY | END | disposition home or self-care (01) | PROVIDERS: PCP Family Medicine; Referring Provider Family Medicine; Visit Provider Urology | DX: N40.0 Benign prostatic hyperplasia without lower urinary tract symptoms (principal); R97.20 Elevated prostate specific antigen [PSA]; E11.9 Type 2 diabetes mellitus without complications; I10 Essential (primary) hypertension; Z86.73 Personal history of transient ischemic attack (TIA), and cerebral infarction without residual deficits; E78.00 Pure hypercholesterolemia, unspecified | CPT/HCPCS: 81003; 99212; G0463 ==

== ENCOUNTER 2024-10-14 19:49 | Emergency (ER) | payer MEDICARE, BC, SELFPAY ==
--- NOTE | 2024-10-14 19:54 | EDNOTE_ITS ---
Neuro Symptoms Deficit-RME/HPI General Chief Complaint: Neuro Symptoms/Deficit Stated Complaint: HEADACHE, NUMBNESS TO TONGUE AN HOUR AGO Time Seen by Provider: 10/14/24 19:54 Arrival date/time: 10/14/24 19:49 RME / HPI RME / HPI Narrative: Dr. 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 Patient reports associated right-sided facial numbness and feeling generally unsteady on his feet. Also reports having a mild headache. Denies any nausea, vomiting or any other associated symptoms. No falls or injuries. NKA. Related Data Allergies Allergy/AdvReac Type Severity Reaction Status Date / Time No Known Allergies Allergy Verified 10/14/24 19:56 Review of Systems Review of Systems Systems Reviewed: All systems reviewed, normal except as documented Past Medical History Past Medical History NEUROLOGIC: Negative Neurological Disorders or Seizures CARDIAC: Positive Cardiac Disorders and Hypercholesterolemia; Negative Congestive Heart Failure RESPIRATORY: Negative Chronic Obstructive Pulmonary Disease (COPD) GASTROINTESTINAL: Positive Gastrointestinal Disorders; Negative Hepatitis GENITOURINARY: Negative Genitourinary Disorders or Renal Disease REPRODUCTIVE: Negative Fibroids MUSCULOSKELETAL: Positive Musculoskeletal Disorders and Fractures ENDOCRINE: Positive Endocrine Disorders and Diabetes Mellitus Type 2; Negative Diabetes Mellitus Type 1 HEMATOLOGIC: Negative Blood Disorders, Anemia, Leukemia, Hemophilia, Thalassemia, Sickle Cell Disease or Clotting Problems OTHER HISTORY: Negative Hospitalization, Autoimmune Disease, Down Syndrome, Developmental Delay, Shingles, Falls, Blood Transfusions, Blood Transfusion Reaction, Anesthesia Reactions, Organ Transplant, Chemotherapy, Radiation Therapy, Hyperbaric Therapy, MRSA, VRSA, Vancomycin-Resistant Enterococci, Human Immunodeficiency Virus (HIV), Chicken Pox, Measles, Mumps, Rubella (Spanish Measles), Pertussis, Clostridium Difficile or Cancer Family History FAMILY HISTORY: Negative Family Psychiatric Problems, Family Respiratory Disorders, Family Cardiac Disorders, Family Gastrointestinal Problems, Family Cancer, Family Surgery or Family Anesthesia Reaction Surgical History SURGICAL: Negative Organ Transplant Social History SMOKING STATUS: Never smoker ED Exam Narrative Physical exam: GENERAL APPEARANCE: alert and oriented x 4, well-developed, well-nourished, no acute distress VITALS: All vitals were reviewed and the pulse ox is 100% on room air, which is normal according to my interpretation. HEENT: Normocephalic, atraumatic; pupils equal, round, reactive to light; EOMI; mucous membranes pink, moist; oropharynx clear NECK: Supple LUNGS: CTABL; no wheezes, no rales, no rhonchi HEART: Regular rate, regular rhythm; normal S1, S2; no murmurs ABDOMEN: non distended; normal BS; soft, no tenderness, no guarding, no rebound; no masses, no organomegaly, no hernia BACK: no CVA tenderness EXTREMITIES: atraumatic; no edema NEUROLOGIC: awake; alert and oriented x4; right facial droop; right facial and tongue numbness, moderate dysarthria and mild expressive aphasia; no intention tremor, steccato speech, dysmetria or dysdiadochokinesia PSYCHIATRIC: appropriate mood and affect SKIN: warm, dry, normal color; no rashes Course Quality Measures Suspected type of Stroke: Hemmorrhagic Tenecteplase given: Reason(s) TPA not given: Use of NOAC (eliquis, xarelto, or pradaxa) not given stroke Orders Category Date Time Status Bedside Blood Glucose NOW Care 10/14/24 19:54 Completed Perishable Fruit Inspector NOW Care 10/14/24 19:54 Completed Continuous Pulse Oximetry NOW Care 10/14/24 19:54 Completed EKG (ED ONLY) *Do not use* NOW Care 10/14/24 19:54 Completed In and Out Catheter NEEDED Care 10/14/24 19:54 Completed Insert IV NOW Care 10/14/24 19:54 Completed NIH Stroke Scale now Care 10/14/24 19:54 Completed NPO NOW Care 10/14/24 19:54 Completed Nurse Swallow Screen x1 Care 10/14/24 19:54 Completed Transfuse,blood/blood products NOW Care 10/14/24 21:40 Completed Consult to Neurology / Tele-Neurology Routine Cons 10/14/24 19:[address] angio stroke protocol Stat Exams 10/14/24 21:[address] stroke protocol Stat Exams 10/14/24 19:54 Completed EKG (ED Only) Stat Exams 10/14/24 19:54 Draft Alcohol, Blood Medical Stat Lab 10/14/24 20:10 Completed B-Type Natriuretic Peptide Stat Lab 10/14/24 20:10 Completed CBC Stat Lab 10/14/24 20:10 Completed Comprehensive Metabolic Panel Stat Lab 10/14/24 20:10 Completed Drug Screen,Urine Stat Lab 10/14/24 20:42 Completed Magnesium Stat Lab 10/14/24 20:10 Completed Partial Thromboplastin Time Stat Lab 10/14/24 20:10 Completed Prothrombin Time with INR Stat Lab 10/14/24 20:10 Completed Troponin I Stat Lab 10/14/24 20:10 Completed Urinalysis Stat Lab 10/14/24 20:42 Completed Urine Culture Stat Lab 10/14/24 19:54 Received Desmopressin Acetate [Ddavp] Med 10/14/24 21:36 Discontinued 30 mcg IV X1 ONE Nicardipine/Ns 20Mg Ivpb [Cardene Ivpb] Med 10/14/24 20:10 Discontinued 20 mg in 200 ml IV 5 mg/hr Tranexamic Acid 1,000 mg Ivpb [Tranexamic Acid Ivpb] Med 10/14/24 20:11 Discontinued 1,000 mg in 100 ml IV PRNMRX1 Tranexamic Acid 1,000 mg Ivpb [Tranexamic Acid Ivpb] Med 10/14/24 20:13 Discontinued 1,000 mg in 100 ml IV PRNMRX1 levETIRAcetam INJ [Keppra Inj] Med 10/14/24 20:11 Discontinued 1,000 mg IVP X1 ONE Oxygen Delivery NOW RT 10/14/24 19:54 Completed Vital Signs Vital signs: Vital Signs Temperature 98.4 F 10/14/24 20:00 Pulse Rate 62 10/14/24 20:00 Respiratory Rate 20 10/14/24 20:00 Blood Pressure 161/84 H 10/14/24 20:00 Pulse Oximetry (%) 100 10/14/24 20:00 Oxygen Delivery Method Room Air 10/14/24 20:00 Neuro Symptoms / Deficit MDM Narrative MDM Narrative:: Scribe Attestation: 10/14/24 - Aisha Banks am scribing for and in the presence of Dr. Wright. Stroke alert initiated in triage at 1950. I went and evaluated the patient. Patient sent to CT. TXA, Keppra 1g, and Nicardipine drip with systolic blood pressure goal of 140. 2012: Received a call from our radiologist, Dr. Jones, stating the patient has a 25mm left parietal lobe bleed. Transfer process initiated. 2051: Spoke with [facility]'s transfer center. Awaiting callback from their neurosurgeon. 2105: Discussed case with Dr. Pulliam from teleneurology regarding consultation. Discussed patients ED course, exam findings, labs, and radiology results. States the patient is having hemorrhagic conversion of his old CVA and recommends going through with the CTA head and neck. 2117: [facility] declined the patient for transfer due to the patient requiring IR services that they do not have at their facility. 2126: Spoke with [facility] transfer center. Spoke with Dr. Echevarria, neurosurgeon, who agrees to consult. Recommends ordering 2 units of platelets, DDAVP, and requests to have the CTs sent on a disc, along with information regarding the patient's old stroke. Spoke with Dr. Zavala, ED physician, who accepts the patient for ED-ED transfer. 2158: Spoke with the blood bank, who states the platelets will not be available until tomorrow morning. 2229: EMS is here to fern picker the patient. Patient data External records reviewed:: [facility] previous records (Per chart review, patient was admitted here on 09/01/24 for CVA.) Clinical information provided by:: patient and family (son) Social determinants that could affect healthcare access:: none Patient has the following chronic illnesses:: DM, HTN How is presenting disease/condition affected by chronic disease/condition?: uneffected by Evaluation data The following diagnostics were reviewed and interpreted by me:: lab results, radiology exam(s) and EKG tracing(s) Lab and/or radiology exams considered but not ordered:: none Interpretation Summary: CBC normal, PT/INR/PTT normal, CMP normal, BNP normal, Troponin normal, UA unremarkable, UDS negative, Blood Alcohol negative. EKG done at 2030, NSR, rate of 63, normal axis, no ectopy, no acute ischemia, according to my interpretation. [place] [facility] Report Signed Patient: KALIN JOHNSTON [facility]. Record#: [id number] Birthdate: 1955 Age/Sex: 69 / M Location: [facility] Attending Dr: Ordering Physician: Elan Wright MD Date of Service: 10/14/24 Procedure(s): CT stroke protocol Accession Number(s): [id number] cc: Rony Jones MD; Elan Wright MD~ Examination: CT brain head without contrast. 2-D sagittal coronal reconstructions Date and time of exam:October 14, 20242004 hours COMPARISON: September 02, 2024 INDICATIONS: Stroke alert, headache, numbness to the tongue beginning one hour ago CTDI: vol (mGy):49.7 DLP: (mGycm):1048 Technique: Multiple CT axial sections of the brain have been obtained, 5 mm slice thickness. Contrast has not been administered. 2-D sagittal, coronal reconstructions have been obtained Low dose protocols were performed. One or more of the following dose reduction techniques were used; automated exposure control, adjustment of the mA and/or KV according to patient size, use of iterative reconstruction technique. Findings: Acute hemorrhagic infarct in the left parietal lobe, the hemorrhage measuring 25 mm in thickness axial image 18 No mass effect Fourth ventricle midline Cranial vault intact IMPRESSION: Findings most consistent with acute hemorrhagic infarct in the left parietal lobe, the hemorrhage measuring 25 mm Dictated By: Rony Jones MD Signed By: <Electronically signed by Rony Jones MD in OV> 10/14/242010 Medications / Prescriptions Medications or Prescriptions considered but not ordered:: none Medication administrations:: Medication Administration History Discontinued Medications Desmopressin Acetate (Desmopressin Acetate 4 Mcg/Ml Vial) 30 mcg IV X1 ONE Stop: 10/14/24 21:37 Last Admin: 10/14/24 22:02 Dose: 30 mcg Documented By: CVL Nicardipine/Sodium Chloride (Cardene Ivpb) 20 mg in 200 mls @ 50 mls/hr IV .Q4H PRN; Protocol PRN Reason: PER PROTOCOL Stop: 11/13/24 20:09 Last Titration: 10/14/24 21:30 Dose: 3 mg/hr, 30 mls/hr Documented By: Titration: 10/14/24 21:23 Dose: 3 mg/hr, 30 mls/hr Documented By: Titration: 10/14/24 21:16 Dose: 3 mg/hr, 30 mls/hr Documented By: Titration: 10/14/24 21:11 Dose: 3 mg/hr, 30 mls/hr Documented By: Admin: 10/14/24 21:02 Dose: 5 mg/hr, 50 mls/hr Documented By: CVL Tranexamic Acid (Tranexamic Acid Ivpb) 1,000 mg in 100 mls @ 200 mls/hr IV PRNMRX1 PRN PRN Reason: BLEEDING Tranexamic Acid (Tranexamic Acid Ivpb) 1,000 mg in 100 mls @ 200 mls/hr IV PRNMRX1 PRN PRN Reason: BLEEDING Last Infusion: 10/14/24 21:12 Dose: Infused Documented By: Admin: 10/14/24 20:39 Dose: 200 mls/hr Documented By: CVL Levetiracetam (Levetiracetam Inj 100 Mg/Ml Vial 5ml) 1,000 mg IVP X1 ONE Stop: 10/14/24 20:12 Last Admin: 10/14/24 20:56 Dose: 1,000 mg Documented By: CVL see above Consultations Consultation(s) initiated? (list below): Yes Diagnosis Neuro Differential Diagnosis: other (ischemic CVA, hemorrhagic CVA, ICH, TIA) Most likely diagnosis given after review of the tests above:: see clinical impression below Admission Indicated Admission indicated?: not indicated Explain why admission is indicated or not indicated:: Patient requires a higher [id number]. Admission Request Was there a request for admission?: No Disposition Plan Disposition Plan: Transfer Critical Care Time Critical Care Time Critical Care Time: Yes Total Critical Care Time (min.): 60 Attestation: The high probability of sudden, clinically significant deterioration in the patient?s condition required the highest level of my preparedness to intervene urgently. The services I provided to this patient were to treat and/or prevent clinically significant deterioration. Services included the following: chart data review, reviewing nursing notes and/or old charts, documentation time, wound care center consultant collaboration regarding findings and treatment options, medication orders and management, direct patient care, vital sign assessments and ordering, interpreting and reviewing diagnostic studies and lab tests. Aggregate critical care time includes only time during which I was engaged in work directly related to the patient?s care, as described above, whether at bedside or elsewhere in the Emergency Department. It did not include time spent performing other reported procedures or the services of residents, students, nurses or physician assistants. Discharge Plan Plan Patient Disposition: [facility] Pt Being Transferred to: [facility] Service Needed for Transfer: Neurosurgery Discharge Disposition comment: Accepted by Dr. Zavala (ED physician), Dr. Echevarria (consulting neurosurgeon) Prescriptions/Referrals Referrals: No Primary/Family,Physician [Primary Care Provider] - In 1 week Problem List Clinical Impression: Hemorrhagic stroke Patient/Caregiver Discharge Instructions Print Language: Mohawk Stand Alone Forms: [place] Award Info., Patient Portal Info Letter
--- NOTE | 2024-10-14 19:54 | EKG_ITS ---
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
--- NOTE | 2024-10-14 19:54 | PC.NURSE ---
Case [id number]/14/2024 19:54:27 PST Case # [id number] has been created.
[2024-10-14 20:00] VITALS: BP 161/84; PULSE 62; RESP 20; TEMP 36.9; O2SAT 100
[2024-10-14 20:26] LABS: Basophils # (Auto) 0.1 Thou/mm3 (0.0-0.2); Basophils % (Auto) 1 % (0-2.5); Eosinophils # (Auto) 0.2 Thou/mm3 (0.0-0.5); Eosinophils % (Auto) 4 % (0-10); Hematocrit 40.1 % (41.0-53.0); Immature Granulocytes % (Auto) 0 % (0-0); Lymphocytes # (Auto) 1.6 Thou/mm3 (1.0-4.8); Lymphocytes % (Auto) 31 % (10-50); Mean Corpuscular HGB Conc 37.4 g/dl (31.0-37.0); Mean Corpuscular Hemoglobin 34.2 pg (25.0-35.0); Mean Corpuscular Volume 92 fL (80-100); Monocytes # (Auto) 0.5 Thou/mm3 (0.0-0.8); Monocytes % (Auto) 9 % (0-12); Neutrophils # (Auto) 2.9 Thou/mm3 (1.8-7.7); Neutrophils % (Auto) 54 % (37-80); Nucleated Red Blood Cell % 0 /100 WBC (0); Platelet Count 207 Thou/mm3 (140-440); RDW Standard Deviation 41.1 fL (35.1-43.9); Red Blood Count 4.38 Miln/mm3 (4.50-5.90); White Blood Count 5.2 Thou/mm3 (3.8-10.6)
[2024-10-14 20:28] VITALS: PULSE 65
[2024-10-14 20:29] VITALS: RESP 99
[2024-10-14] MEDS: TRANEXAMIC ACID 1,000 MG IVPB 1,000 MG/100 ML BAG 200 MG IV (20:39)
--- NOTE | 2024-10-14 20:41 | ESCONSULT_ITS ---
Tele Neuro Consultation Consultation Date 10/14/24 Most Recent Vital Signs Last Vital Signs Temp 98.4 F 10/14/24 20:00 Pulse 65 10/14/24 20:28 Resp 20 10/14/24 20:00 BP 161/84 H 10/14/24 20:00 Pulse Ox 100 10/14/24 20:00 O2 Del Method Room Air 10/14/24 20:00 Consultation Narrative [facility] Consult Services Patient Name:???Martín Cortes Date of :???1955 Identification Number:??? Date of Service:???10/14/2024 19:54:27 Diagnosis:?I61.8 - Other intracerebral hemorrhage Impression: 69 y/o M with hx of HTN, HLD and prior stroke who presents with R lip/tongue numbness and aphasia. NIHSS 2 for mild aphasia with some paraphasic errors and mild dysarthria. CTH with hemorrhage in the L parietal lobe, into the region of his prior stroke. BP elevated at 161/84 - started on a cardene drip. Patient was started on Keppra prior to me getting on the call and was also given TXA. Imaging findings are concerning for delayed hemorrhagic transformation of his prior stroke. Recommend ICU admission with close monitoring, additional imaging, BP control and additional workup below. Recommendation: Diagnostic Studies: ?Repeat CT head in first 8-12hrs ?CTA head and neck with contrast Laboratory Studies:? INR/PT ? aPTT? CBC Medications:? Hold?antiplatelet?therapy/NSAIDS/Anticoagulation ? Keppra 500mg bid. Nursing Recommendations: ? Telemetry, IV Fluids?Avoid dextrose containing fluids, Maintain euglycemia ? Head of bed 30 degrees ? Neuro checks q1-2?hrs?during ICU stay ? Once stable neuro checks q4?hrs ? keep BP less than 140/90's with goal of 130/80s Consultations: ? Need Neurosurgery consultation?STAT ? Recommend Speech therapy if failed dysphagia screen ? Physical therapy/Occupational therapy Disposition: ? Neurology will Follow Metrics: Last Known Well: 10/14/2024 19:30:00 Dispatch Time: 10/14/2024 19:54:27 Arrival Time: 10/14/2024 19:49:00 Initial Response Time: 10/14/2024 20:06:53Symptoms: R facial numbness + aphasia. Initial patient interaction: 10/14/2024 20:18:00 NIHSS Assessment Completed: 10/14/2024 20:25:00Patient is not a candidate for Thrombolytic. Thrombolytic Medical Decision: 10/14/2024 20:25:00Patient was not deemed candidate for Thrombolytic because of following reasons: History of previous intracranial hemorrhage, intracranial neoplasm . Significant head trauma or stroke in previous [address] Head: I personally reviewed all the CT images that were available to me and it showed: acute hemorrhage in L parietal lobe into region of prior infarct. Primary Provider Notified of Diagnostic Impression and Management Plan on: 10/14/2024 20:36:30 History of Present Illness:Patient is a 69 year old Male. Patient was brought by private transportation with symptoms of R facial numbness + aphasia. Patient had a stroke in the L parietal lobe in August 2024, presented with similar symptoms and got TNK. Main issue was with his speech, he reports ongoing work with a speech therapist and says his speech has not returned to normal. Presented this evening due to worsening speech and numbness in the R lip and mouth (similar to prior presentation). Past Medical History: ?Hypertension ?Hyperlipidemia ?Stroke Medications: No Anticoagulant use? Antiplatelet use:?Yes?ASA + Plavix on recent discharge summary Reviewed EMR for current medications Allergies:? Reviewed Social History: Smoking: No Alcohol Use: No Family History: There is no family history of premature cerebrovascular disease pertinent to this consultation ROS : 14 Points Review of Systems was performed and was negative except mentioned in HPI. Past Surgical History: There Is No Surgical History Contributory To Today?s Visit Examination: BP(161/84),?Pulse(62),?Blood Glucose(131) 1A: Level of Consciousness - Alert; keenly responsive?+ 0 1B: Ask Month and Age - Both Questions Right?+ 0 1C: Blink Eyes & Squeeze Hands - Performs Both Tasks?+ 0 2: Test Horizontal Extraocular Movements - Normal?+ 0 3: Test Visual Tran - No Visual Loss?+ 0 4: Test Facial Palsy (Use Grimace if Obtunded) - Normal symmetry?+ 0 5A: Test Left Arm Motor Drift - No Drift for 10 Seconds?+ 0 5B: Test Right Arm Motor Drift - No Drift for 10 Seconds?+ 0 6A: Test Left Leg Motor Drift - No Drift for 5 Seconds?+ 0 6B: Test Right Leg Motor Drift - No Drift for 5 Seconds?+ 0 7: Test Limb Ataxia (FNF/Heel-Riojas) - No Ataxia?+ 0 8: Test Sensation - Normal; No sensory loss?+ 0 9: Test Language/Aphasia - Mild-Moderate Aphasia: Some Obvious Changes, Without Significant Limitation?+ 1 10: Test Dysarthria - Mild-Moderate Dysarthria: Slurring but can be understood?+ 1 11: Test Extinction/Inattention - No abnormality?+ 0 NIHSS Score:?2 ICH Score: 0 Richie Coma Score:13-15 (0) Age >= 80:No (0) ICH volume >= 30mL:No (0) Intraventricular hemorrhage:No (0) Infratentorial origin of hemorrhage:No (0) Pre-Morbid Modified [place] Scale:2 Points = Slight disability; unable to carry out all previous activities, but able to look after own affairs without assistance This consult was conducted in real time using interactive audio and video technology. Patient was informed of the technology being used for this visit and agreed to proceed. Patient located in hospital and provider located at home/office setting. Due to the immediate potential for life-threatening deterioration due to underlying acute neurologic illness, I spent 35 minutes providing critical care. This time includes time for face to face visit via telemedicine, review of medical records, imaging studies and discussion of findings with providers, the patient and/or family. Dr Jessi Pulliam [facility] For Inpatient follow-up with [facility] physician please call [facility] at . As we are not an outpatient service for any post hospital discharge needs please contact the hospital for assistance. If you have any questions for the [facility] physicians or need to reconsult for clinical or diagnostic changes please contact us via [facility] at . ?
[2024-10-14 20:43] LABS: Partial Thromboplastin Time 26.9 Seconds (22.0-36.0); Prothrombin Time 11.4 Seconds (9.0-12.2)
[2024-10-14 20:45] LABS: Alanine Aminotransferase 34 U/L (10-49); Albumin, Serum 4.5 gm/dL (3.4-4.8); Alcohol, Blood Medical < 3.0 mg/dL (0-10.0); Alkaline Phosphatase 83 U/L (46-116); Anion Gap 9 (7-16); Aspartate Amino Transferase 33 U/L (0-34); BUN/Creatinine Ratio 11 Ratio (12-20); Bilirubin,Total 0.9 mg/dL (0.3-1.2); Blood Urea Nitrogen 11 mg/dL (9-23); Calcium 9.6 mg/dL (8.3-10.6); Calcium (Corrected) 9.6 mg/dL (8.5-10.1); Carbon Dioxide 27.3 mMol/L (20.0-31.0); Chloride 99 mMol/L (98-107); Globulin 2.3 gm/dL (2.3-3.5); Glucose 140 mg/dL (74-106); Osmolality,Calculated 271 (275-295); Potassium 4.6 mMol/L (3.4-5.1); Sodium 135 mMol/L (136-145); Total Protein 6.8 gm/dL (5.7-8.2); Troponin I < 0.002 ng/mL (0.0-0.045); eGFR > 60 See Note
[2024-10-14 20:51] LABS: B-Type Natriuretic Peptide < 20 pg/mL (0-100)
[2024-10-14] MEDS: levETIRAcetam INJ 100 MG/ML VIAL 5ML 1000 MG IVP (20:56)
[2024-10-14 20:57] LABS: Collection Type, Urine Clean Catch; Squamous Epithelial Cell,Urine 0 /hpf (0-5); WBC,Urine 0 /hpf (0-5)
[2024-10-14 21:02] VITALS: BP 161/83; PULSE 61
[2024-10-14] MEDS: NICARDIPINE/NS 20MG IVPB 20 MG/200 ML BAG 50 MG IV (21:02)
[2024-10-14 21:03] LABS: Bilirubin,Urine Negative (Negative); Blood,Urine Negative (Negative); Clarity,Urine Clear (Clear/Hazy); Color,Urine Colorless (Lt Yel-Yel); Glucose, Urine Negative (Negative); Ketones,Urine Negative (Negative); Leukocyte Esterase,Urine Negative (Negative); Nitrite,Urine Negative (Negative); Protein,Urine Negative (Neg - Trace); RBC,Urine < 1 /hpf (0-3); Specific Gravity,Urine 1.005 (1.001-1.035); Urobilinogen,Urine Negative mg/dL (0.0-1.0)
--- NOTE | 2024-10-14 21:08 | XR_ITS ---
Examination: CTA carotids with intravenous contrast CTA brain, head with intravenous contrast. 2-D sagittal, coronal reconstructions. 3-D reconstructions. Exam date and time: October 14, 2024 2140 hours INDICATIONS: Stroke alert, tongue numbness hemorrhagic left parietal stroke on CT brain scan today CTDI: vol (mGy) 11.3 DLP: (mGycm) 475 Technique: Multiple CTA axial brain, head carotid images post intravenous contrast injection 75 cc, Isovue-370. 2-D sagittal, coronal reconstructions. 3-D reconstructions, 3-D post processing including vascular maximum intensity projection images. Low dose protocols were performed. One or more of the following dose reduction techniques were used; automated exposure control, adjustment of the mA and/or KV according to patient size, use of iterative reconstruction technique. Findings: No significant common carotid carotid bifurcation or internal carotid artery stenoses Dominant left vertebral artery in the neck with no critical vertebral artery stenoses Intracranial vertebral arteries basilar artery and posterior cerebral branches fill with no large vessel occlusions Petrous juxtasellar supraclinoid portions internal carotid arteries fill as well as M1 segments middle cerebral arteries middle cerebral artery trifurcation vessels anterior cerebral arteries IMPRESSION: No significant neck arterial stenoses No cerebral large vessel arterial occlusions or thrombus
[2024-10-14 21:13] LABS: Amphetamine/Methamp Scrn,U Negative (Negative); Barbiturate Screen,Urine Negative (Negative); Benzodiazepines Screen,Urine Negative (Negative); Benzoylecgonine Screen, Ur Negative (Negative); Fentanyl Screen,Urine Negative (Negative); Opiate Screen,Urine Negative (Negative); THC Screen,Urine Negative (Negative)
[2024-10-14 21:32] VITALS: BP 123/75; PULSE 64; RESP 16; O2SAT 97
--- NOTE | 2024-10-14 21:44 | PC.NURSE ---
THIS PT IS ACCEPTED BY REACH FOR TRANSPORT. ROGER WAS THE REP I SPOKE WITH FOR ACCEPTING WITH A ETA OF [id number].
[2024-10-14 21:55] VITALS: BP 138/79; PULSE 71; RESP 15; O2SAT 100
[2024-10-14] MEDS: DESMOPRESSIN ACETATE 4 MCG/ML VIAL 30 MCG IV (22:02)
--- NOTE | 2024-10-14 22:32 | PC.NURSE ---
REPORT GIVEN TO VIRGILIO WU AT [facility] AT .
== END 2024-10-14 22:42 | disposition short-term general hospital (02) ==
PROVIDERS: Emergency Provider Emergency Medicine
DX: I62.9 Nontraumatic intracranial hemorrhage, unspecified (principal); R47.81 Slurred speech; R20.0 Anesthesia of skin; E11.9 Type 2 diabetes mellitus without complications; I10 Essential (primary) hypertension
CPT/HCPCS: 36415; 70450; 70496; 70498; 80053; 80307; 80320; 81001; 83735; 83880; 84484; 85025; 85610; 85730; 86850; 86900; 86901; 87086; 93005; 96365; 96375; 99291; A4649; J1953; J2404; J2597; J3490; Q9967; G0480

== ENCOUNTER 2024-10-21 13:31 | Emergency (ER) | payer MEDICARE, BC, SELFPAY ==
[2024-10-21] VITALS (8 sets, daily range): BP systolic 150–199; BP diastolic 75–92; PULSE 56–73; RESP 13–20; TEMP 36.6–36.8; O2SAT 97–100; BMI 25.8
--- NOTE | 2024-10-21 13:41 | PC.NURSE ---
DR. HAYWARD TALKING TO PT.
--- NOTE | 2024-10-21 13:49 | XR_ITS ---
Examination: CT brain head without contrast. 2-D sagittal coronal reconstructions Date and time of exam:October 21, 2024 1359 hours Generalized head pain today, history strokes, history stroke alert October 14, 2024, hemorrhagic infarct left parietal lobe CTDI: vol (mGy):50.6 DLP: (mGycm):1037 Technique: Multiple CT axial sections of the brain have been obtained, 5 mm slice thickness. Contrast has not been administered. 2-D sagittal, coronal reconstructions have been obtained Low dose protocols were performed. One or more of the following dose reduction techniques were used; automated exposure control, adjustment of the mA and/or KV according to patient size, use of iterative reconstruction technique. Findings: Decrease in hemorrhage in the left parietal lobe with surrounding edema No mass effect upon the ventricular system No new infarcts noted Ventricles are not enlarged IMPRESSION: Decrease in hemorrhage in the left parietal lobe compared to October 14, 2024
--- NOTE | 2024-10-21 13:51 | XR_ITS ---
Examination: AP chest single view Technique one AP portable upright chest single view Date and time: October 21, 2024 1408 hours INDICATIONS: Chest pain today with high blood pressure FINDINGS: Normal heart size. Lungs are clear. Osseous structures are intact IMPRESSION: No active disease
--- NOTE | 2024-10-21 13:51 | EKG_ITS ---
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
--- NOTE | 2024-10-21 14:12 | EDNOTE_ITS ---
ED General RME/HPI General Chief complaint: General Adult/Misc Complain Stated complaint: BP 185/82; PT HAD HEMORRHAGIC STROKE LAST WEEK. Time Seen by Provider: 10/21/24 13:47 Arrival date/time: 10/21/24 13:31 RME / HPI RME / HPI narrative: DR. NAILS MAIN ED EVALUATION: 69 year old male presents to the Emergency Department accompanied by his caregiver with complaint of shakiness and elevated blood pressure; patient was mainly concerned of having another stroke so he came in for evaluation. Otherwise no other symptoms reported at this time. Per africana studies professor, patient is at baseline, normal speech and normal mentation. PMHx: Ischemic CVA was Plavix then had another hemorrhagic stroke a week ago where he was treated in [place] and blood thinners were discontinued. Other PMHx include hypertension and diabetes. Social Hx: No tobacco, alcohol, or substance use. PCP: Dr. Ureña Related Data Allergies Allergy/AdvReac Type Severity Reaction Status Date / Time hydralazine Allergy Severe Muscle Pain Verified 10/21/24 13:35 Review of Systems Review of Systems Systems Reviewed: All systems reviewed, normal except as documented Narrative Review of Systems: Constitutional: POSITIVES: shakiness DENIES: fevers; Eyes: DENIES: loss of vision; Head/Ear/Nose: DENIES: loss of hearing. Throat: DENIES: dysphagia. Cardiovascular: DENIES: chest pain, dyspnea, or syncope. Respiratory: DENIES: shortness of breath; Gastrointestinal: DENIES: rectal bleeding or melena. Genitourinary: DENIES: dysuria (painful or difficult urination); Musculoskeletal: DENIES: arthralgia (pain in a joint); Skin: DENIES: rash; Neurological: DENIES: loss of function or movement; Psychiatric: DENIES: recent major life stressor, emotional problem, illicit drug use or abuse; Endocrinology: DENIES: weight change,; Hematologic/Lymphatic: DENIES: abnormal bruising. Allergic/Immunologic: DENIES: urticaria (hives). Past Medical History Past Medical History NEUROLOGIC: Positive Cerebrovascular Accident CARDIAC: Positive Hypercholesterolemia and Hypertension GASTROINTESTINAL: Positive Gastrointestinal Disorders MUSCULOSKELETAL: Positive Musculoskeletal Disorders and Fractures ENDOCRINE: Positive Endocrine Disorders and Diabetes Mellitus Type 2 Family History FAMILY HISTORY: Positive Family Cancer (PT'S MOM PANCREATIC CANCER) Social History SMOKING STATUS: Never smoker SUBSTANCE USE: does not use ALCOHOL: Never ED Exam Narrative Physical exam: Physical Exam: General: The vital signs were reviewed. Patient is anxious hypertensive seen in the triage room initially the patient is non-toxic, in no apparent distress and appears healthy with a patent airway, no respiratory distress and has no apparent circulatory problems. Head & Scalp: Normocephalic, atraumatic. Face: Appears normal and is without lesions, deformity. Ears: Left external pinna appears normal. Right external pinna appears normal. Eyes: The sclera is anicteric. No obvious photophobia. The Left and Right Orbit/Lid/Conjunctiva appears normal without swelling, discoloration or injection. Nose: The nose is without deformity, discharge or tenderness; Throat: Appears normal. The mucous membranes are pink and moist without exudates, redness or mass seen. The tongue appears normal. Neck: The neck is supple and no apparent mass or adenopathy. Chest: The chest wall is normal in size and symmetry and has no chest wall tenderness or crepitus. The patient displays normal ventilator effort without retractions, accessory muscle use and has adequate air movement bilaterally with no wheezes and no rales. Cardiovascular: Regular rate and rhythm; No murmurs, rubs, or gallops; Gastrointestinal: The abdomen appears normal. No obvious hernias or mass. The abdomen is soft and benign, non-distended, with no pain, no guarding and no rebound tenderness. Bowel sounds are present and normal sounding. No CVA tenderness. Genitourinary: Back/Spine: Normal inspection Extremities/Musculoskeletal/lymphatic: The bilateral upper and lower extremities are warm. There is no evidence of arterial insufficiency. There is no evidence of venous insufficiency/edema. The patient spontaneously moves bilateral upper and lower extremities with no pain and no limitation of movement. There is no apparent, injury or trauma. Skin: The skin is warm, dry and intact. No rashes. No petechia. No purpura. No abnormal bruising. The color is appropriate with no cyanosis. Mental status/Psychiatric: Mental status is appropriate for age. The patient has no apparent delusions, visual hallucinations, no apparent audible hallucinations. The patient has no apparent suicidal thoughts/ideation and no apparent homicidal thoughts/ideation. Neurological: The patient is awake, alert, interactive, cordial, cooperative and is oriented to name and situation. The patient follows commands and answers historical question with no impairment. There is no visual disturbance apparent. The pupils are equal and reactive bilaterally with normal eye movements and no diplopia The bilateral upper and lower extremities have normal strength, normal range of motion and normal functioning. The gait, station and balance appear to be baseline with no acute change. According to family members there is no speech change and there is no change in the gait or any motor function on my initial and follow-up exam and this was confirmed by the son who is in the room later at around 1620 hrs. Course Quality Measures none Orders Category Date Time Status EKG (ED ONLY) *Do not use* NOW Care 10/21/24 13:51 Completed NIH Stroke Scale NOW Care 10/21/24 13:[address] head/brain wo con Stat Exams 10/21/24 13:49 Completed EKG (ED Only) Stat Exams 10/21/24 13:51 Draft XR chest 1V portable Stat Exams 10/21/24 13:51 Completed Blood Culture (Lab) Stat Lab 10/21/24 14:23 Received CBC Stat Lab 10/21/24 14:23 Completed Comprehensive Metabolic Panel Stat Lab 10/21/24 14:23 Completed Lactate (Lactic Acid) Stat Lab 10/21/24 14:23 Completed Lactate (Lactic Acid) Stat Lab 10/21/24 17:04 Results Troponin I Stat Lab 10/21/24 14:23 Completed Urinalysis Stat Lab 10/21/24 14:30 Completed Venous Blood Gas Stat Lab 10/21/24 14:23 Completed LORazepam [Ativan Inj] Med 10/21/24 13:52 Discontinued 0.5 mg IVP X1 ONE Labetalol IV [Trandate IV] Med 10/21/24 13:52 Discontinued 10 mg IVP X1 ONE Vital Signs Vital signs: Vital Signs Pulse Rate 73 10/21/24 13:41 Blood Pressure 193/91 H 10/21/24 13:41 Pulse Oximetry (%) 100 10/21/24 13:41 Critical Care Time Critical Care Time Critical Care Time: Yes Total Critical Care Time (min.): 45 Attestation: The high probability of sudden, clinically significant deterioration in the patient's condition required the highest level of my preparedness to intervene urgently. The services I provided to this patient were to treat and/or prevent clinically significant deterioration. Services included the following: chart data review, reviewing nursing notes and/or old charts, documentation time, sql consultant collaboration regarding findings and treatment options, medication orders and management, direct patient care, vital sign assessments and ordering, interpreting and reviewing diagnostic studies and lab tests. Aggregate critical care time includes only time during which I was engaged in work directly related to the patient's care, as described above, whether at bedside or elsewhere in the Emergency Department. It did not include time spent performing other reported procedures or the services of residents, students, nurses or physician assistants. Discharge Plan Plan Patient Disposition: HOME (Self Care) Prescriptions/Referrals Referrals: Tucker Wei MD [Primary Care Provider] - In 1 week Problem List Clinical Impression: Hypertensive urgency, Hemorrhagic stroke, Elevated lactic acid level Impression comment: Resolving hemorrhagic stroke, anxiety, Patient/Caregiver Discharge Instructions Additional Instructions: Follow-up with your doctor to address your blood pressure in the next 1 to 2 days.. Today there is no evidence of a new stroke or extension of the previous bleeding stroke. Continue the medical management as directed. Print Language: Romanian Stand Alone Forms: [place] Award Info., Patient Portal Info Letter MDM Narrative [facility] hospital course: I, Michelle Anderson, am scribing for and in the presence of Dr. Nails. Patient comes in worried about having a recurrence of his previous hemorrhagic stroke a week ago where he was treated in [place]. A stat CT was done and the blood is actually less than improving and there is no evidence of any extension of the previous hemorrhagic stroke. Also he is no longer on any blood thinners. His blood pressure was quite high when he arrived this is fueled by his anxiety. We gave a little Ativan and later some labetalol and his blood pressures been staying around 150 and he feels much better. Chest x-ray was done which was negative. Head CT was negative for any cuter extension of the p revious stroke he can read the full report there is some encephalomalacia surrounding the area and there is not believed to be any neoplastic findings this was discussed directly Dr. Nath and the radiologist. CBC with a white count of 5.5 hemoglobin of 14.7 venous blood gas pH is 733 and a pCO2 of 55 electrolytes were totally normal BUN 11 creatinine 0.9 lactic acid is slightly elevated 2.8 of uncertain etiology. Transaminases and troponin were all negative. Urinalysis came back negative. Reevaluation at 1645 hrs. with patient to be neurologically intact no changes in baseline and the only issue is elevated lactic acid. So we will repeat the lactic acid make sure is not trending forward as the patient does not appear to be ill in any other way. Recheck at 1720 hrs. patient is alert awake feeling good he has no speech problems there is no motor problems. He is ready to go home he is sebastián follow- up with his doctor to address his blood pressure issues and blood pressure currently is 144 systolic Clinical Information Provided by patient Medical Records Reviewed [facility] Meds/Rx Considered, not Ordered None Labs/Rad/Tests considered, not Ordered None Chronic Illness/Social Conditions Add or document further as needed: Ischemic CVA was Plavix then had another hemorrhagic stroke a week ago where he was treated in [place] and blood thinners were discontinued. Other PMHx include hypertension and diabetes. EKG EKG Interpretation narrative: My interpretation: EKG performed at 1406 hours, sinus rhythm, rate 67, no STEMI Lab Interpretation Labs: see narrative above Imaging Imaging interpretation: see narrative above Radiology reports / interpretation(s): Procedure(s): XR chest 1V portable Accession Number(s): [id number] cc: Dannie Nails MD; Rony Jones MD~ Examination: AP chest single view Technique one AP portable upright chest single view Date and time: October 21, 2024 1408 hours INDICATIONS: Chest pain today with high blood pressure FINDINGS: Normal heart size. Lungs are clear. Osseous structures are intact IMPRESSION: No active disease Dictated By: Rony Jones MD ----- Procedure(s): CT head/brain wo con Accession Number(s): [id number] cc: Dannie Nails MD; Rony Jones MD~ Examination: CT brain head without contrast. 2-D sagittal coronal reconstructions Date and time of exam:October 21, 2024 1359 hours Generalized head pain today, history strokes, history stroke alert October 14, 2024, hemorrhagic infarct left parietal lobe CTDI: vol (mGy):50.6 DLP: (mGycm):1037 Technique: Multiple CT axial sections of the brain have been obtained, 5 mm slice thickness. Contrast has not been administered. 2-D sagittal, coronal reconstructions have been obtained Low dose protocols were performed. One or more of the following dose reduction techniques were used; automated exposure control, adjustment of the mA and/or KV according to patient size, use of iterative reconstruction technique. Findings: Decrease in hemorrhage in the left parietal lobe with surrounding edema No mass effect upon the ventricular system No new infarcts noted Ventricles are not enlarged IMPRESSION: Decrease in hemorrhage in the left parietal lobe compared to October 14, 2024 Dictated By: Rony Jones MD Medication Administration(s) Medication Administration History Discontinued Medications Labetalol HCl (Labetalol Inj 5 Mg/Ml Vial 20 Ml) 10 mg IVP X1 ONE Stop: 10/21/24 13:53 Last Admin: 10/21/24 15:21 Dose: 10 mg Documented By: GM Lorazepam (Lorazepam 2 Mg/Ml Vial) 0.5 mg IVP X1 ONE Stop: 10/21/24 13:53 Last Admin: 10/21/24 14:30 Dose: 0.5 mg Documented By: AA Diagnosis Differential diagnosis: TIA, CVA, brain bleed, dehydration, hypertensive emergency, anxiety Most likely dx, and/or detailed dx discussion: Hypertensive urgency Hemorrhagic stroke Elevated lactic acid level Dispositon Disposition: Discharge Home
[2024-10-21] MEDS: LORazepam 2 MG/ML VIAL 0.5 MG IVP (14:30)
[2024-10-21 14:47] LABS: Base Excess, Venous 1 (-3-3); Lactate (Lactic Acid) 2.8 mMol/L (0.4-2.0); O2 Saturation, Venous 58 % (96-97); PCO2, Venous 55 mmHg (36-56); PO2, Venous 31 mmHg (15-58); pH, Venous 7.33 (7.33-7.66)
[2024-10-21 14:48] LABS: Collection Type, Urine Clean Catch; Squamous Epithelial Cell,Urine 0 /hpf (0-5); WBC,Urine 0 /hpf (0-5)
[2024-10-21 14:55] LABS: Basophils # (Auto) 0.1 Thou/mm3 (0.0-0.2); Basophils % (Auto) 1 % (0-2.5); Eosinophils # (Auto) 0.1 Thou/mm3 (0.0-0.5); Eosinophils % (Auto) 3 % (0-10); Hematocrit 41.3 % (41.0-53.0); Hemoglobin 14.7 g/dL (13.5-16.0); Immature Granulocytes % (Auto) 0 % (0-0); Immature Granulocytes Auto 0.01 Thou/mm3 (0.00-0.00); Lymphocytes # (Auto) 1.1 Thou/mm3 (1.0-4.8); Lymphocytes % (Auto) 21 % (10-50); Mean Corpuscular HGB Conc 35.6 g/dl (31.0-37.0); Mean Corpuscular Hemoglobin 33.2 pg (25.0-35.0); Mean Corpuscular Volume 93 fL (80-100); Monocytes # (Auto) 0.4 Thou/mm3 (0.0-0.8); Monocytes % (Auto) 7 % (0-12); Neutrophils # (Auto) 3.8 Thou/mm3 (1.8-7.7); Neutrophils % (Auto) 69 % (37-80); Nucleated Red Blood Cell % 0 /100 WBC (0); Platelet Count 224 Thou/mm3 (140-440); Red Blood Count 4.43 Miln/mm3 (4.50-5.90); White Blood Count 5.5 Thou/mm3 (3.8-10.6)
[2024-10-21 15:04] LABS: Bilirubin,Urine Negative (Negative); Blood,Urine Negative (Negative); Clarity,Urine Clear (Clear/Hazy); Color,Urine Colorless (Lt Yel-Yel); Glucose, Urine Negative (Negative); Ketones,Urine Negative (Negative); Leukocyte Esterase,Urine Negative (Negative); Nitrite,Urine Negative (Negative); PH,Urine 6.5 (5.0-7.0); Protein,Urine Negative (Neg - Trace); RBC,Urine 1 /hpf (0-3); Specific Gravity,Urine 1.004 (1.001-1.035); Urobilinogen,Urine Negative mg/dL (0.0-1.0)
[2024-10-21] MEDS: LABETALOL INJ 5 MG/ML VIAL 20 ML 10 MG IVP (15:21)
[2024-10-21 16:20] LABS: Alanine Aminotransferase 24 U/L (10-49); Albumin, Serum 4.5 gm/dL (3.4-4.8); Albumin/Globulin Ratio 1.8 (1.2-2.2); Alkaline Phosphatase 77 U/L (46-116); Anion Gap 10 (7-16); BUN/Creatinine Ratio 12 Ratio (12-20); Bilirubin,Total 0.9 mg/dL (0.3-1.2); Blood Urea Nitrogen 11 mg/dL (9-23); Calcium 9.7 mg/dL (8.3-10.6); Calcium (Corrected) 9.7 mg/dL (8.5-10.1); Carbon Dioxide 27.9 mMol/L (20.0-31.0); Chloride 100 mMol/L (98-107); Creatinine (Component) 0.9 mg/dL (0.6-1.3); Estimated Creatinine Clearance 76.4 mL/min (>60); Globulin 2.5 gm/dL (2.3-3.5); Glucose 133 mg/dL (74-106); Osmolality,Calculated 277 (275-295); Potassium 4.6 mMol/L (3.4-5.1); Sodium 138 mMol/L (136-145); Troponin I < 0.002 ng/mL (0.0-0.045); eGFR > 60 See Note
[2024-10-21 17:12] LABS: Lactate (Lactic Acid) 2.2 mMol/L (0.4-2.0)
[2024-10-21 17:43] LABS: Reflex Lactate? Y
[2024-10-21 20:10] LABS: Reflex Lactate? Y
== END 2024-10-21 17:41 | disposition home or self-care (01) ==
PROVIDERS: Emergency Provider Emergency Medicine; PCP Family Medicine
DX: I16.0 Hypertensive urgency (principal); E87.20 Acidosis, unspecified; I62.9 Nontraumatic intracranial hemorrhage, unspecified; I10 Essential (primary) hypertension; E78.00 Pure hypercholesterolemia, unspecified
CPT/HCPCS: 36415; 70450; 71045; 80053; 81001; 82803; 83605; 84484; 85025; 87040; 93005; 96374; 96375; 99284; J2060; J3490; J1920

== ENCOUNTER → 2024-10-21 | Outpatient (CLI) | payer MEDICARE, BC, SELFPAY ==
[2024-10-24 17:47] LABS: PSA, Free 0.73 ng/mL; PSA, Total 5.7 ng/mL (< OR = 4.0)
[2024-10-26 07:13] LABS: PSA, % Free 13 % (calc) (>25)
== END | disposition home or self-care (01) ==
LOC: COPL 07:12
PROVIDERS: PCP Family Medicine; Referring Provider Urology; Visit Provider Urology
DX: N40.1 Benign prostatic hyperplasia with lower urinary tract symptoms (principal)
CPT/HCPCS: 36415; 84153; 84154

== ENCOUNTER → 2024-11-10 | Outpatient (CLI) | payer MEDICARE, BC, SELFPAY ==
--- NOTE | 2024-11-10 15:30 | XR_ITS ---
Examination: CT brain head without contrast. 2-D sagittal coronal reconstructions Date and time of exam:November 10, 2024 1548 hours Comparison October 21, 2024 INDICATIONS: History hemorrhagic stroke left parietal lobe October 14, 2024 CTDI: vol (mGy):50.1 DLP: (mGycm):1105 Technique: Multiple CT axial sections of the brain have been obtained, 5 mm slice thickness. Contrast has not been administered. 2-D sagittal, coronal reconstructions have been obtained Low dose protocols were performed. One or more of the following dose reduction techniques were used; automated exposure control, adjustment of the mA and/or KV according to patient size, use of iterative reconstruction technique. Findings: Further decrease in hemorrhage in the left parietal lobe, mild hemorrhage does remain Encephalomalacia left parietal lobe Mild ventricular enlargement and mass effect upon the ventricular system Fourth ventricle midline Cranial vault intact IMPRESSION: Further slight decrease in hemorrhage in the left lobe
== END | disposition home or self-care (01) ==
PROVIDERS: PCP Family Medicine; Referring Provider Family Medicine; Visit Provider Family Medicine
DX: I62.9 Nontraumatic intracranial hemorrhage, unspecified (principal)
CPT/HCPCS: 70450

== ENCOUNTER → 2024-11-17 | Outpatient (BNVA) | payer MEDICARE, BC, SELFPAY | END | disposition home or self-care (01) | PROVIDERS: PCP Family Medicine; Referring Provider Family Medicine; Visit Provider Urology | DX: N40.0 Benign prostatic hyperplasia without lower urinary tract symptoms (principal); R97.20 Elevated prostate specific antigen [PSA]; E11.9 Type 2 diabetes mellitus without complications; I10 Essential (primary) hypertension; E78.00 Pure hypercholesterolemia, unspecified | CPT/HCPCS: 81003; 99212; G0463 ==

== ENCOUNTER → 2024-12-23 | Outpatient (CLI) | payer MEDICARE, BC, SELFPAY ==
[2024-12-23 11:46] LABS: Glucose Estimated Average 143 mg/dL (80-131); Hemoglobin A1C 6.6 % Hgb (4.8-6.0)
[2024-12-23 11:50] LABS: Alanine Aminotransferase 17 U/L (10-49); Albumin, Serum 4.1 gm/dL (3.4-4.8); Albumin/Globulin Ratio 1.8 (1.2-2.2); Alkaline Phosphatase 67 U/L (46-116); Anion Gap 7 (7-16); Aspartate Amino Transferase 18 U/L (0-34); BUN/Creatinine Ratio 14 Ratio (12-20); Bilirubin,Total 1.1 mg/dL (0.3-1.2); Blood Urea Nitrogen 14 mg/dL (9-23); Calcium 9.7 mg/dL (8.3-10.6); Calcium (Corrected) 9.7 mg/dL (8.5-10.1); Carbon Dioxide 27.9 mMol/L (20.0-31.0); Cardiac Risk Estimate 2.6 RATIO (4.0-6.7); Chloride 104 mMol/L (98-107); Cholesterol 116 mg/dL (132-200); Creatinine (Component) 1.0 mg/dL (0.6-1.3); Globulin 2.3 gm/dL (2.3-3.5); Glucose 164 mg/dL (74-106); HDL Cholesterol 44 mg/dL (40-60); LDL Cholesterol,Calculated 51 mg/dL (0-130); Osmolality,Calculated 282 (275-295); Potassium 4.5 mMol/L (3.4-5.1); Sodium 139 mMol/L (136-145); Total Protein 6.4 gm/dL (5.7-8.2); Triglycerides 107 mg/dL (30-150); eGFR > 60 See Note
== END | disposition home or self-care (01) ==
LOC: COPL 10:33
PROVIDERS: PCP Family Medicine; Referring Provider Family Medicine; Visit Provider Family Medicine
DX: I10 Essential (primary) hypertension (principal); E78.2 Mixed hyperlipidemia; R47.01 Aphasia; E11.59 Type 2 diabetes mellitus with other circulatory complications
CPT/HCPCS: 36415; 80053; 80061; 83036

== ENCOUNTER → 2024-12-24 | Outpatient (CLI) | payer MEDICARE, BC, SELFPAY ==
--- NOTE | 2024-12-24 09:00 | XR_ITS ---
Examination: CT brain head without contrast. 2-D sagittal coronal reconstructions Date and time of exam:December 24, 2024 0903 hours Comparison November 10, 2024 INDICATIONS: CT stroke alert October 14, 2024 with acute hemorrhagic infarct in the left parietal lobe CTDI: vol (mGy):52.1 DLP: (mGycm):1102 Technique: Multiple CT axial sections of the brain have been obtained, 5 mm slice thickness. Contrast has not been administered. 2-D sagittal, coronal reconstructions have been obtained Low dose protocols were performed. One or more of the following dose reduction techniques were used; automated exposure control, adjustment of the mA and/or KV according to patient size, use of iterative reconstruction technique. Findings: No significant ventricular enlargement. Encephalomalacia left parietal lobe Old infarct right cerebellar hemisphere Intra-axial or extra-axial hemorrhage density is not seen. No mass effect or midline shift Basal cisterns are not remarkable. Fourth ventricle is midline. Cranial vault intact. Impression: Negative for acute hemorrhage, mass effect or midline shift
== END | disposition home or self-care (01) ==
PROVIDERS: PCP Family Medicine; Referring Provider Psychiatry & Neurology Neurology; Visit Provider Psychiatry & Neurology Neurology
DX: I60.9 Nontraumatic subarachnoid hemorrhage, unspecified (principal)
CPT/HCPCS: 70450